=== PATIENT | male | born 1955 | race Caucasian/White ===

== ENCOUNTER → 2017-04-07 | Outpatient (CLI) | payer BC | END | disposition home or self-care (01) | LOC: RADECHMAIN 11:45 | PROVIDERS: ATTEND Internal Medicine | DX: I47.1 Supraventricular tachycardia (principal); I49.1 Atrial premature depolarization; I49.3 Ventricular premature depolarization; I27.0 Primary pulmonary hypertension; R00.8 Other abnormalities of heart beat | CPT/HCPCS: 93225; 93226 ==

== ENCOUNTER → 2020-09-30 | Outpatient (CLI) | payer MEDICARE ==
--- NOTE | 2020-10-01 07:33 | US ---
EXAMINATION TYPE: US prostate transrectal DATE OF EXAM: 09/30/2020 COMPARISON: NONE CLINICAL HISTORY: R97.2 Elevated PSA. PSA drawn 09/08/20; patient stated up to bathroom once /night. This examination was performed using the transrectal probe. EXAM MEASUREMENTS: Gland Size: 5.3 x 4.8 x 3.4cm Volume: 46.0ml Predicted PSA: 5.52ng/ml Actual PSA (if available):6.5ng/ml Vascular area is seen at border of Right Central Gland and Peripheral Zone. Initial images several vesicles are within normal limits. Prostate gland measuring enlarged in size w ith central calcifications. Some focal vascularity could reflect a product of a prostatitis, correlat e clinically. IMPRESSION: Enlarged prostate gland is confirmed. No suspicious hypoechoic nodules. Focal vascularit y right aspect could be product of a focal prostatitis, correlate clinically. Predicted PSA = volume x 0.12 ng/ml Calculated Volume = 0.5236 x L x W x H
== END | disposition home or self-care (01) ==
LOC: RADUSWWP 08:18
PROVIDERS: ATTEND Internal Medicine
DX: N40.0 Benign prostatic hyperplasia without lower urinary tract symptoms (principal)
CPT/HCPCS: 76872

== ENCOUNTER 2024-02-03 09:04 | Observation (INO) | payer MEDICARE ==
[2024-02-03 09:14] LABS: Glucose,Whole Blood 571 mg/dL (70-110)
[2024-02-03] MEDS: SODIUM CHLORIDE 0.9% 1,000 ML IV STA (09:24)
[2024-02-03] MEDS: SODIUM CHLORIDE 0.9% 500 ML 500 ML IV STA (09:25)
[2024-02-03 09:38] LABS: Basophils # (A) 0.1 k/uL (0-0.2); Basophils % (A) 1 %; Eosinophils # (A) 0.3 k/uL (0-0.7); Eosinophils % (A) 5 %; HCT 48.1 % (39.0-53.0); Lymphocytes % (A) 30 %; MCH 30.5 pg (25.0-35.0); MCHC 33.2 g/dL (31.0-37.0); MCV 91.9 fL (80.0-100.0); Mean Platelet Volume 8.6; Monocytes # (A) 0.4 k/uL (0-1.0); Monocytes % (A) 5 %; Neutrophils # (A) 3.9 k/uL (1.3-7.7); Neutrophils % (A) 57 %; Platelet Count 223 k/uL (150-450); RBC 5.23 m/uL (4.30-5.90); RDW 12.9 % (11.5-15.5); WBC 6.8 k/uL (3.8-10.6)
[2024-02-03 09:41] LABS: VBG PH 7.38 (7.31-7.41)
[2024-02-03 10:00] LABS: ALT 35 U/L (4-49); AST 27 U/L (17-59); African American GFR (CKD) >90 (>60 ml/min/1.73 sqM); Albumin 3.5 g/dL (3.5-5.0); Alkaline Phosphatase 206 U/L (38-126); Anion Gap 4 mmol/L; Blood Urea Nitrogen 19 mg/dL (9-20); Calcium 9.1 mg/dL (8.4-10.2); Carbon Dioxide 28 mmol/L (22-30); Chloride 102 mmol/L (98-107); Lipase 908 U/L (23-300); Non-African American GFR(CKD) 90 (>60 ml/min/1.73 sqM); Potassium 4.8 mmol/L (3.5-5.1); Sodium 134 mmol/L (137-145); Total Bilirubin 0.4 mg/dL (0.2-1.3); Total Protein 6.6 g/dL (6.3-8.2)
[2024-02-03 10:03] LABS: Glucose 619 mg/dL (74-99)
[2024-02-03] MEDS: INSULIN REGULAR 100 UNIT/ML VIAL (IV) IV ONE (10:21)
[2024-02-03 10:41] LABS: Appearance,Urine Clear (Clear); Bilirubin,Urine Negative (Negative); Blood,Urine Negative (Negative); Color,Urine Colorless; Glucose,Urine (UA) 4+ (Negative); Ketones,Urine Negative (Negative); Leukocyte Esterase,Urine Negative (Negative); Nitrite,Urine Negative (Negative); PH, Urine 6.5 (5.0-8.0); Protein,Urine Negative (Negative); Urobilinogen,Urine <2.0 mg/dL (<2.0)
--- NOTE | 2024-02-03 11:23 | ED ---
General Adult HPI - General Chief complaint: Recheck/Abnormal Lab/Rx Stated complaint: Abd labs-sent by PCP Time Seen by Provider: 02/03/24 09:09 Source: patient, RN notes reviewed Mode of arrival: ambulatory Limitations: no limitations - History of Present Illness Initial comments: 68-year-old male presents emergency department with chief complaint of abnormal labs. Patient states he had blood work yesterday which was as ordered by his new PCP. He states he has not had blood work in 3 years he states he was told his glucose was very elevated. He does admit to polyuria polydipsia. Patient denies any significant weight gain or weight loss denies any chest pain shortness of breath no localized abdominal pain no fevers or chills no other complaints. - Related Data Home Medications Medication Instructions Recorded Confirmed Aspirin EC [Ecotrin Low Dose] 81 mg PO DAILY 02/03/24 02/03/24 Tamsulosin [Flomax] 0.4 mg PO DIRECTED 02/03/24 02/03/24 Allergies Allergy/AdvReac Type Severity Reaction Status Date / Time No Known Allergies Allergy Verified 02/03/24 10:41 Review of Systems ROS Statement: Those systems with pertinent positive or pertinent negative responses have been documented in the HPI. ROS Other: All systems not noted in ROS Statement are negative. Past Medical History Past Medical History: No Reported History History of Any Multi-Drug Resistant Organisms: None Reported Past Surgical History: No Surgical Hx Reported Past Psychological History: No Psychological Hx Reported Smoking Status: Never smoker Past Alcohol Use History: None Reported Past Drug Use History: None Reported General Exam Limitations: no limitations General appearance: alert, in no apparent distress Head exam: Present: atraumatic, normocephalic, normal inspection Eye exam: Present: normal appearance, PERRL, EOMI. Absent: scleral icterus, conjunctival injection, periorbital swelling ENT exam: Present: normal exam, normal oropharynx, mucous membranes moist Neck exam: Present: normal inspection, full ROM. Absent: tenderness, meningismus, lymphadenopathy Respiratory exam: Present: normal lung sounds bilaterally. Absent: respiratory distress, wheezes, rales, rhonchi, stridor Cardiovascular Exam: Present: regular rate, normal rhythm, normal heart sounds. Absent: systolic murmur, diastolic murmur, rubs, gallop, clicks GI/Abdominal exam: Present: soft, normal bowel sounds. Absent: distended, tenderness, guarding, rebound, rigid Neurological exam: Present: alert, oriented X3, CN II-XII intact, reflexes normal. Absent: motor sensory deficit Skin exam: Present: warm, dry, intact, normal color. Absent: rash Course Vital Signs 02/03/24 02/03/24 09:05 13:08 Temperature 98.2 F Pulse Rate 87 70 Respiratory 18 18 Rate Blood Pressure 161/93 142/86 O2 Sat by Pulse 95 97 Oximetry Medical Decision Making - Medical Decision Making Was pt. sent in by a medical professional or institution (, KATINA, TILE MACHINE OPERATOR, urgent care, hospital, or assisted...) When possible be specific @ -[PCP Did you speak to anyone other than the patient for history (EMS, parent, family, police, friend...)? What history was obtained from this source @ -No Did you review nursing and triage notes (agree or disagree)? Why? @ -I reviewed and agree with nursing and triage notes Were old charts reviewed (outside hosp., previous admission, EMS record, old EKG, old radiological studies, urgent care reports/EKG's, assisted records)? Report findings @ -No old charts were reviewed Differential Diagnosis (chest pain, altered mental status, abdominal pain women, abdominal pain men, vaginal bleeding, weakness, fever, dyspnea, syncope, headache, dizziness, GI bleed, back pain, seizure, CVA, palpatations, mental health, musculoskeletal)? @ -Diabetes, hyperglycemia, HHS, DKA, EKG interpreted by me (3pts min.). @ -None X-rays interpreted by me (1pt min.). @ -None done CT interpreted by me (1pt min.). @ -CT pelvis showing evidence of mild pancreatitis, multiple lymph nodes, pulmonary nodules and enlarged prostate U/S interpreted by me (1pt. min.). @ -None done What testing was considered but not performed or refused? (CT, X-rays, U/S, labs)? Why? @ -None What meds were considered but not given or refused? Why? @ -None Did you discuss the management of the patient with other professionals (professionals i.e. KATINA Olivares, TILE MACHINE OPERATOR, lab, RT, psych nurse, protective services social worker, life sciences director, teacher, bsa officer, showcase trimmer)? Give summary @ -[facility] for admission for new onset diabetes, hyperglycemia, acute pancreatitis and possible metastatic disease Was smoking cessation discussed for >3mins.? @ -No Was critical care preformed (if so, how long)? @ -No Were there social determinants of health that impacted care today? How? (Homelessness, low income, unemployed, alcoholism, drug addiction, transport ation, low edu. Level, literacy, decrease access to med. care, alf, rehab)? @ -No Was there de-escalation of care discussed even if they declined (Discuss DNR or withdrawal of care, Hospice)? DNR status @ -No What co-morbidities impacted this encounter? (DM, HTN, Smoking, COPD, CAD, Cancer, CVA, ARF, Chemo, Hep., AIDS, mental health diagnosis, sleep apnea, morbid obesity)? @ -None Was patient admitted / discharged? Hospital course, mention meds given and route, prescriptions, significant lab abnormalities, going to OR and other pertinent info. @ -Admitted for further evaluation workup of acute pancreatitis, new onset diabetes for medication control, further evaluation with oncology Undiagnosed new problem with uncertain prognosis? @ -Yes Drug Therapy requiring intensive monitoring for toxicity (Heparin, Nitro, Insulin, Cardizem)? @ -No Were any procedures done? @ -No Diagnosis/symptom? @ -New onset diabetes, acute pancreatitis, pulmonary nodules, enlarged prostate Acute, or Chronic, or Acute on Chronic? @ -Acute Uncomplicated (without systemic symptoms) or Complicated (systemic symptoms)? @ -Complicated Side effects of treatment? @ -No Exacerbation, Progression, or Severe Exacerbation? @ -No Poses a threat to life or bodily function? How? (Chest pain, [place], [place], pneumonia, PE, COPD, DKA, ARF, appy, cholecystitis, CVA, Diverticulitis, Homicidal, Suicidal, threat to staff... and all critical care pts) @ -No - Lab Data Result diagrams: 02/03/24 09:27 02/03/24 09:27 Lab Results 02/03/24 02/03/24 02/03/24 Range/Units 09:12 09: 09:27 WBC 6.8 (3.8-10.6) k/uL RBC 5.23 (4.30-5.90) m/uL Hgb 16.0 (13.0-17.5) gm/dL Hct 48.1 (39.0-53.0) % MCV 91.9 (80.0-100.0) fL MCH 30.5 (25.0-35.0) pg MCHC 33.2 (31.0-37.0) g/dL RDW 12.9 (11.5-15.5) % Plt Count 223 (150-450) k/uL MPV 8.6 Neutrophils % 57 % Lymphocytes % 30 % Monocytes % 5 % Eosinophils % 5 % Basophils % 1 % Neutrophils # 3.9 (1.3-7.7) k/uL Lymphocytes # 2.0 (1.0-4.8) k/uL Monocytes # 0.4 (0-1.0) k/uL Eosinophils # 0.3 (0-0.7) k/uL Basophils # 0.1 (0-0.2) k/uL VBG pH (7.31-7.41) VBG pCO2 (37-51) mmHg VBG HCO3 (24-28) mmol/L Sodium 134 L (137-145) mmol/L Potassium 4.8 (3.5-5.1) mmol/L Chloride 102 (98-107) mmol/L Carbon Dioxide 28 (22-30) mmol/L Anion Gap 4 mmol/L BUN 19 (9-20) mg/dL Creatinine 0.83 (0.66-1.25) mg/dL Est GFR (CKD-EPI)AfAm >90 (>60 ml/min/1.73 sqM) Est GFR (CKD-EPI)NonAf 90 (>60 ml/min/1.73 sqM) Glucose 619 H* (74-99) mg/dL POC Glucose (mg/dL) 571 H (70-110) mg/dL POC Glu Enrollment Management Director ID [place] Plasma Lactic Acid Juma (0.7-2.0) mmol/L Calcium 9.1 (8.4-10.2) mg/dL Total Bilirubin 0.4 (0.2-1.3) mg/dL AST 27 (17-59) U/L ALT 35 (4-49) U/L Alkaline Phosphatase 206 H (38-126) U/L Total Protein 6.6 (6.3-8.2) g/dL Albumin 3.5 (3.5-5.0) g/dL Lipase 908 H (23-300) U/L Acetone, Qual Negative (Negative) 02/03/24 02/03/24 Range/Units 09:27 09:27 WBC (3.8-10.6) k/uL RBC (4.30-5.90) m/uL Hgb (13.0-17.5) gm/dL Hct (39.0-53.0) % MCV (80.0-100.0) fL MCH (25.0-35.0) pg MCHC (31.0-37.0) g/dL RDW (11.5-15.5) % Plt Count (150-450) k/uL MPV Neutrophils % % Lymphocytes % % Monocytes % % Eosinophils % % Basophils % % Neutrophils # (1.3-7.7) k/uL Lymphocytes # (1.0-4.8) k/uL Monocytes # (0-1.0) k/uL Eosinophils # (0-0.7) k/uL Basophils # (0-0.2) k/uL VBG pH 7.38 (7.31-7.41) VBG pCO2 46 (37-51) mmHg VBG HCO3 27 (24-28) mmol/L Sodium (137-145) mmol/L Potassium (3.5-5.1) mmol/L Chloride (98-107) mmol/L Carbon Dioxide (22-30) mmol/L Anion Gap mmol/L BUN (9-20) mg/dL Creatinine (0.66-1.25) mg/dL Est GFR (CKD-EPI)AfAm (>60 ml/min/1.73 sqM) Est GFR (CKD-EPI)NonAf (>60 ml/min/1.73 sqM) Glucose (74-99) mg/dL POC Glucose (mg/dL) (70-110) mg/dL POC Glu Enrollment Management Director ID Plasma Lactic Acid Juma 1.5 (0.7-2.0) mmol/L Calcium (8.4-10.2) mg/dL Total Bilirubin (0.2-1.3) mg/dL AST (17-59) U/L ALT (4-49) U/L Alkaline Phosphatase (38-126) U/L Total Protein (6.3-8.2) g/dL Albumin (3.5-5.0) g/dL Lipase (23-300) U/L Acetone, Qual (Negative) Disposition Clinical Impression: New onset type 2 diabetes mellitus, Hyperglycemia, Acute pancreatitis, Pulmonary nodules, Lymphadenopathy Disposition: ADMITTED IP TO THIS HOSP Condition: Fair Time of Disposition: 12:08
--- NOTE | 2024-02-03 11:26 | CT ---
EXAMINATION TYPE: CT abdomen pelvis w con DATE OF EXAM: 02/03/2024 COMPARISON: None HISTORY: New onset pancreatitis CT DLP: 1094.4 mGycm CONTRAST: CT scan of the abdomen and pelvis is performed without Oral Contrast and with IV Contrast, patient in jected with 100ml mL of Isovue 300. FINDINGS: LUNG BASES-: Multiple pulmonary nodules seen at the imaged lung bases totally approximately 20 on the right measuring up to 1.8 cm. Left lung demonstrates up to 15 nodules the largest measuring 7 mm. LIVER/GB: No calcified gallstones. No space occupying hepatic lesion. Biliary tree is of normal ca liber. PANCREAS: Mild pancreatic edema. Pancreatic stranding suggested compatible with pancreatitis. There i s no evidence for pseudocyst or abscess. SPLEEN: No splenic enlargement. No lesion seen. ADRENALS: No nodule. No thickening. KIDNEYS/BLADDER: No hydronephrosis. No nephrolithiasis. No distinct renal mass. Urinary bladder g rossly unremarkable. BOWEL: Normal appendix. Normal bowel caliber. No inflammation. GENITAL ORGANS: Prostate gland enlargement. LYMPH NODES: Nonspecific right external iliac chain adenopathy measuring 2 cm. AORTA: No significant abnormality. OSSEOUS STRUCTURES: Multilevel degenerative disc disease and dish. OTHER: No significant additional abnormality is seen. IMPRESSION: 1. Changes of mild uncomplicated pancreatitis. 2. Multiple noncalcified basilar pulmonary nodules. Metastatic disease is not excluded. 3. Prostate gland enlargement. Correlate with PSA. Nonspecific right external iliac chain adenopathy.
[2024-02-03 11:43] LABS: Glucose,Whole Blood 220 mg/dL (70-110)
[2024-02-03] MEDS ORDERED: ACETAMINOPHEN TAB 325 MG TAB PO PRN (12:08)
[2024-02-03] MEDS ORDERED: ONDANSETRON 4 MG/2 ML VIAL IVP PRN (12:08)
[2024-02-03] MEDS ORDERED: NALOXONE 0.4 MG/ML 1 ML VIAL IV PRN (12:08)
[2024-02-03] MEDS: SODIUM CHLORIDE 0.9% 1,000 ML IV SCH (13:04)
[2024-02-03 13:15] LABS: Glucose,Whole Blood 193 mg/dL (70-110)
[2024-02-03] MEDS ORDERED: DEXTROSE 50% SYRINGE 50 ML IVP PRN ×2 (14:29)
[2024-02-03 15:35] LABS: Glucose,Whole Blood 344 mg/dL (70-110)
--- NOTE | 2024-02-03 15:48 | P.PN ---
Subjective Progress Note Date: 02/03/24 Patient is a 68-year-old male who was sent in by PCP for abnormal labs. Patient states that he has not had blood work done in over 3 years. He went to go see his PCP yesterday and had blood work done in his office. He was told that he had elevated blood glucose and was told to go to the ED. Patient also admits to polyuria and polydipsia. Patient is denying any abdominal pain. He denies any history of alcohol abuse. In the ED patient was found to have a blood glucose of 619. His bicarb was 28 and acetone was negative so DKA ruled out. Patient also found to have a lipase level of 908. CT abdomen pelvis showed findings of uncomplicated pancreatitis. There are also accidental findings of pulmonary nodules and enlarged prostate and lymphadenopathy. Patient admitted to the medicine service. Review of systems: 10 ROS reviewed and are negative except as noted in HPI Physical exam General: [Alert and oriented, well nourished, no acute distress]. Eye: [PERRL, EOMI, normal conjunctiva]. HENT: [Normocephalic, clear tympanic membranes, normal hearing, moist oral mucosa, no scleral icterus, no sinus tenderness]. Neck: [Supple, non-tender, no carotid bruits, no JVD, no lymphadenopathy]. Lungs: [Clear to auscultation and percussion, non-labored respiration]. Heart: [Normal rate, regular rhythm, no murmur, gallop or edema]. Abdomen: [Soft, non-tender, non-distended, normal bowel sounds, no masses]. Musculoskeletal: [Normal range of motion and strength, no tenderness or swelling]. Skin: [Skin is warm, dry and pink, no rashes or lesions]. Neurologic: [Awake, alert, and oriented X3, CN II-XII intact]. Psychiatric: [Cooperative, appropriate mood and affect]. Assessment and plan Newly diagnosed diabetes mellitus with hyperglycemia Bicarb and acetone within normal limits with DKA ruled out. Patient started on sliding scale insulin and Levemir 25 units at bedtime Patient will need education on administering insulin as well as diabetic diet Acute pancreatitis with unclear etiology Patient denies any abdominal pain however meets criteria with elevated lipase and positive CT findings Patient denies any history of alcohol abuse CT scan negative for biliary duct obstruction and bilirubin within normal limits so gallstone pancreatitis ruled out Check triglycerides Patient will need outpatient follow-up with gastroenterology Continue with aggressive fluids Trend lipase Pulmonary nodules I discussed with the patient that he will need to follow-up with his PCP Abdominal lymphadenopathy I discussed with the patient that he will need to follow-up with his PCP BPH Continue with tamsulosin DVT prophylaxis: Lovenox Labs are unremarkable so no need to trend Objective - Vital Signs Vital signs: Vital Signs Temp 98.2 F 02/03/24 09:05 Pulse 70 02/03/24 13:08 Resp 18 02/03/24 13:08 BP 142/86 02/03/24 13:08 Pulse Ox 97 02/03/24 13:08 FiO2 Intake & Output 02/02/24 02/03/24 02/03/24 18:59 06:59 18:59 Weight 83.915 kg - Labs CBC & Chem 7: 02/03/24 09:27 02/03/24 09:27 Labs: Abnormal Lab Results - Last 24 Hours (Table) 02/03/24 02/03/24 02/03/24 Range/Units 09:12 09:27 10:23 Sodium 134 L (137-145) mmol/L Glucose 619 H* (74-99) mg/dL POC Glucose (mg/dL) 571 H (70-110) mg/dL Alkaline Phosphatase 206 H (38-126) U/L Lipase 908 H (23-300) U/L Urine Glucose (UA) 4+ H (Negative) 02/03/24 02/03/24 02/03/24 Range/Units 11:41 13:04 15:31 Sodium (137-145) mmol/L Glucose (74-99) mg/dL POC Glucose (mg/dL) 220 H 193 H 344 H (70-110) mg/dL Alkaline Phosphatase (38-126) U/L Lipase (23-300) U/L Urine Glucose (UA) (Negative)
--- NOTE | 2024-02-03 16:27 | P.HPIM ---
History of Present Illness H&P Date: 02/03/24 Chief Complaint: sent in by PCP for abnormal labs Patient is a 68-year-old male who was sent in by PCP for abnormal labs. Patient states that he has not had blood work done in over 3 years. He went to go see his PCP yesterday and had blood work done in his office. He was told that he had elevated blood glucose and was told to go to the ED. Patient also admits to polyuria and polydipsia. Patient is denying any abdominal pain. He denies any history of alcohol abuse. In the ED patient was found to have a blood glucose of 619. His bicarb was 28 and acetone was negative so DKA ruled out. Patient also found to have a lipase level of 908. CT abdomen pelvis showed findings of uncomplicated pancreatitis. There are also accidental findings of pulmonary nodules and enlarged prostate and lymphadenopathy. Patient admitted to the medicine service. Review of systems: 10 ROS reviewed and are negative except as noted in HPI Physical exam General: [Alert and oriented, well nourished, no acute distress]. Eye: [PERRL, EOMI, normal conjunctiva]. HENT: [Normocephalic, clear tympanic membranes, normal hearing, moist oral mucosa, no scleral icterus, no sinus tenderness]. Neck: [Supple, non-tender, no carotid bruits, no JVD, no lymphadenopathy]. Lungs: [Clear to auscultation and percussion, non-labored respiration]. Heart: [Normal rate, regular rhythm, no murmur, gallop or edema]. Abdomen: [Soft, non-tender, non-distended, normal bowel sounds, no masses]. Musculoskeletal: [Normal range of motion and strength, no tenderness or swelling]. Skin: [Skin is warm, dry and pink, no rashes or lesions]. Neurologic: [Awake, alert, and oriented X3, CN II-XII intact]. Psychiatric: [Cooperative, appropriate mood and affect]. Assessment and plan Newly diagnosed diabetes mellitus with hyperglycemia Bicarb and acetone within normal limits with DKA ruled out. Patient started on sliding scale insulin and Levemir 25 units at bedtime Patient will need education on administering insulin as well as diabetic diet Acute pancreatitis with unclear etiology Patient denies any abdominal pain however meets criteria with elevated lipase and positive CT findings Patient denies any history of alcohol abuse CT scan negative for biliary duct obstruction and bilirubin within normal limits so gallstone pancreatitis ruled out Check triglycerides Patient will need outpatient follow-up with gastroenterology Continue with aggressive fluids Trend lipase Pulmonary nodules I discussed with the patient that he will need to follow-up with his PCP Abdominal lymphadenopathy I discussed with the patient that he will need to follow-up with his PCP BPH Continue with tamsulosin DVT prophylaxis: Lovenox Labs are unremarkable so no need to trend Past Medical History Past Medical History: No Reported History History of Any Multi-Drug Resistant Organisms: None Reported Past Surgical History: No Surgical Hx Reported Past Psychological History: No Psychological Hx Reported Smoking Status: Never smoker Past Alcohol Use History: None Reported Past Drug Use History: None Reported Medications and Allergies Home Medications Medication Instructions Recorded Confirmed Type Aspirin EC [Ecotrin Low Dose] 81 mg PO DAILY 02/03/24 02/03/24 History Tamsulosin [Flomax] 0.4 mg PO DIRECTED 02/03/24 02/03/24 History Allergies Allergy/AdvReac Type Severity Reaction Status Date / Time No Known Allergies Allergy Verified 02/03/24 10:41 Physical Exam Osteopathic Statement: *. No significant issues noted on an osteopathic structural exam other than those noted in the History and Physical/Consult. Vitals: Vital Signs Temp Pulse Resp BP Pulse Ox 02/03/24 13:08 70 18 142/86 97 02/03/24 09:05 98.2 F 87 18 161/93 95 Intake and Output 02/03/24 02/03/24 02/03/24 06:59 14:59 22:59 Other: Weight 83.915 kg Results CBC & Chem 7: 02/03/24 09:27 02/03/24 09:27 Labs: Abnormal Lab Results - Last 24 Hours (Table) 02/03/24 02/03/24 02/03/24 Range/Units 09:12 09:27 10:23 Sodium 134 L (137-145) mmol/L Glucose 619 H* (74-99) mg/dL POC Glucose (mg/dL) 571 H (70-110) mg/dL Alkaline Phosphatase 206 H (38-126) U/L Lipase 908 H (23-300) U/L Urine Glucose (UA) 4+ H (Negative) 02/03/24 02/03/24 02/03/24 Range/Units 11:41 13:04 15:31 Sodium (137-145) mmol/L Glucose (74-99) mg/dL POC Glucose (mg/dL) 220 H 193 H 344 H (70-110) mg/dL Alkaline Phosphatase (38-126) U/L Lipase (23-300) U/L Urine Glucose (UA) (Negative)
[2024-02-03 17:47] LABS: Glucose,Whole Blood 298 mg/dL (70-110)
[2024-02-03] MEDS: INSULIN ASPART (NovoLOG) 100 UNIT/ML VIAL SQ SCH (18:03)
[2024-02-03 20:45] LABS: Glucose,Whole Blood 264 mg/dL (70-110)
[2024-02-03 21:16] LABS: Chol/HDL Ratio 5.28 Ratio; LDL Cholesterol,Calculated 172.1 mg/dL (0.0-131.0)
[2024-02-03 21:37] VITALS: RESP 16
[2024-02-03] MEDS: INSULIN DETEMIR (LEVEMIR) 100 UNIT/ML SYR SQ SCH (22:03)
[2024-02-04 07:37] LABS: Glucose,Whole Blood 145 mg/dL (70-110)
[2024-02-04 08:44] VITALS: BP 139/92; PULSE 89; TEMP 97
[2024-02-04] MEDS: ENOXAPARIN 40 MG/0.4 ML SYRINGE SQ SCH (09:14)
[2024-02-04] MEDS: TAMSULOSIN 0.4 MG CAP.ER.24H PO SCH (09:14)
[2024-02-04] MEDS: ASPIRIN 81 MG PO SCH (09:14)
[2024-02-04 09:42] LABS: Basophils # (A) 0.07 X 10*3/uL (0.00-0.10); Basophils % (A) 0.9 %; Eosinophils # (A) 0.44 X 10*3/uL (0.04-0.35); Eosinophils % (A) 5.8 %; HCT 42.4 % (39.6-50.0); HGB 14.7 g/dL (13.0-17.0); Lymphocytes # (A) 2.93 X 10*3/uL (0.90-5.00); Lymphocytes % (A) 38.6 %; MCH 30.4 pg (27.0-32.0); MCHC 34.7 g/dL (32.0-37.0); MCV 87.8 FL (80.0-97.0); Mean Platelet Volume 11.9 FL (9.5-12.2); Monocytes # (A) 0.57 X 10*3/uL (0.20-1.00); Monocytes % (A) 7.5 %; NRBC Per 100 WBC 0 X 10*3/uL (0.00-0.01); Neutrophils # (A) 3.57 X 10*3/uL (1.80-7.70); Neutrophils % (A) 46.9 %; Platelet Count 213 X 10*3/uL (140-440); RBC 4.83 X 10*6/uL (4.40-5.60); RDW 12.6 % (11.5-14.5)
[2024-02-04 10:04] LABS: Lipase 219 U/L (14-60)
[2024-02-04 10:17] LABS: ALT 25 U/L (10-49); AST 17 U/L (14-35); Albumin 3.4 g/dL (3.8-4.9); Albumin/Globulin Ratio 1.42 Ratio (1.60-3.17); Alkaline Phosphatase 69 U/L (41-126); BUN/Creat Ratio 27.14 Ratio (12.00-20.00); Calcium 8.7 mg/dL (8.7-10.3); Carbon Dioxide 25.1 mmol/L (21.6-31.8); Chloride 105 mmol/L (96-109); Globulin 2.4 g/dL (1.6-3.3); Glucose 158 mg/dL (70-110); Potassium 3.8 mmol/L (3.5-5.5); Sodium 139 mmol/L (135-145); Total Bilirubin 0.5 mg/dL (0.3-1.2); Total Protein 5.8 g/dL (6.2-8.2)
[2024-02-04 12:04] LABS: Glucose,Whole Blood 381 mg/dL (70-110)
--- NOTE | 2024-02-04 12:21 | P.DS ---
Providers Date of admission: 02/03/24 10:09 Attending physician: Chandu Johnson MD Consults: 02/03/24 14:41 Consult Physician Routine Consulting Provider: Mirtha Serrato Consult Reason/Comments: Pancreatitis Do you want consulting provider notified?: Yes Primary care physician: Mary [facility] Hospital Course: Discharge diagnosis Newly diagnosed diabetes mellitus with hyperglycemia Acute pancreatitis with unclear etiology Pulmonary nodules Abdominal lymphadenopathy BPH Elevated PSA Hospital course Patient is a 68-year-old male with a past medical history of BPH who was sent to the ED by his PCP for abnormal labs. Patient's outside labs showed hyperglycemia. Patient states that he had not seen a a doctor for more than a year. In the ED patient's blood glucose was in the 600s. His bicarb was within normal limits and acetone also within normal limits so DKA ruled out. Patient also found to have a lipase of 908. CT abdomen pelvis showed uncomplicated pancreatitis and also lymphadenopathy and enlarged prostate and pulmonary nodules. Patient denied any complaints. He also denied any abdominal pain. Patient was admitted to the medicine service. Patient's hemoglobin A1c came back at 14.1. Patient will be discharged on subcu insulin. He will be discharged on Lantus 30 units at bedtime and NovoLog as per sliding scale insulin. Nurse educated the patient how to administer insulin. I did educate the patient on long-acting and short acting insulin. I also educated patient on symptoms of hypoglycemia. manager material arranged for glucometer with supplies. Patient's lipase trended down to the 200s. Patient was found to have a PSA of 18. He was instructed to follow-up with urology. He was also instructed to follow-up with his PCP regarding the pulmonary nodules and the abdominal lymphadenopathy. Patient also instructed to follow-up with gastroenterology regarding workup of his acute pancreatitis. Physical exam General examination - Alert and Oriented 3 in NAD Heart - + S1S2 no murmurs Lungs - Clear to auscultation Abdomen soft NT ND +ve BS Extremities - No edema FILAMENT MAKER - Moving all 4 extremities spontaneously Psych - Calm and cooperative Patient Condition at Discharge: Fair Plan - Discharge Summary Discharge Rx Participant: No New Discharge Prescriptions: New Insulin Aspart (Niacinamide) [Fiasp 100 Unit/ml Flextouch Pen] 2 - 12 units SQ ACHS 30 Days #10 ml Insulin Glargine,Hum.rec.anlog [Lantus Solostar Pen] 30 units SQ DAILY 30 Days #10 ml Continue Aspirin EC [Ecotrin Low Dose] 81 mg PO DAILY Tamsulosin [Flomax] 0.4 mg PO DIRECTED Discharge Medication List Aspirin EC [Ecotrin Low Dose] 81 mg PO DAILY 02/03/24 [History] Tamsulosin [Flomax] 0.4 mg PO DIRECTED 02/03/24 [History] Insulin Aspart (Niacinamide) [Fiasp 100 Unit/ml Flextouch Pen] 2 - 12 units SQ ACHS 30 Days #10 ml 02/04/24 [Rx] Insulin Glargine,Hum.rec.anlog [Lantus Solostar Pen] 30 units SQ DAILY 30 Days #10 ml 02/04/24 [Rx] Follow up Appointment(s)/Referral(s): Mary Churchill III, MD [Primary Care Provider] - 1-2 days (please call to make your own appointment.) Mirtha Serrato MD [STAFF PHYSICIAN] - 1 Week (please call to make your own appointment.) Dewayne Baker MD [STAFF PHYSICIAN] - 1 Week Patient Instructions/Handouts: Type 2 Diabetes in Adults: New Diagnosis (DC), Basic Carbohydrate Counting (DC) Activity/Diet/Wound Care/Special Instructions: *Activity as tolerated *Check your blood sugar before each meal and before bedtime snack. *Keep a record/log of your blood sugars *Consistent carbohydrate diet
[2024-02-04 15:17] VITALS: BMI 29.0
== END 2024-02-04 14:50 | disposition home or self-care (01) ==
LOC: EC 09:04 → 5NMEDONC 10:09
PROVIDERS: ADMIT Family Medicine; ATTEND Family Medicine
DX: E11.65 Type 2 diabetes mellitus with hyperglycemia (principal); K85.90 Acute pancreatitis without necrosis or infection, unspecified; R91.8 Other nonspecific abnormal finding of lung field; R59.0 Localized enlarged lymph nodes; N40.0 Benign prostatic hyperplasia without lower urinary tract symptoms; Z79.82 Long term (current) use of aspirin
CPT/HCPCS: 96360; 96361 ×2; 96372; 99285; 36415; 80061; 80053 ×2; 82803; 82009; 83605; 83690 ×2; 85025 ×2; 81003; 83036; 74177; G0378 ×2; J1650; Q9967

== ENCOUNTER → 2024-02-24 | Outpatient (CLI) | payer MEDICARE ==
[2024-02-25 04:02] LABS: Basophils # (A) 0.07 X 10*3/uL (0.00-0.10); Basophils % (A) 0.9 %; Eosinophils % (A) 3.7 %; HCT 49.2 % (39.6-50.0); HGB 16.1 g/dL (13.0-17.0); Lymphocytes # (A) 2.94 X 10*3/uL (0.90-5.00); Lymphocytes % (A) 36.3 %; MCHC 32.7 g/dL (32.0-37.0); MCV 91.8 FL (80.0-97.0); Mean Platelet Volume 11.4 FL (9.5-12.2); Monocytes # (A) 0.56 X 10*3/uL (0.20-1.00); Monocytes % (A) 6.9 %; NRBC Per 100 WBC 0 X 10*3/uL (0.00-0.01); Platelet Count 246 X 10*3/uL (140-440); RBC 5.36 X 10*6/uL (4.40-5.60); RDW 13.5 % (11.5-14.5); WBC 8.09 X 10*3/uL (4.50-10.00)
[2024-02-25 04:42] LABS: AST 26 U/L (14-35); Albumin 4.2 g/dL (3.8-4.9); Albumin/Globulin Ratio 1.45 Ratio (1.60-3.17); BUN/Creat Ratio 23.56 Ratio (12.00-20.00); Blood Urea Nitrogen 21.2 mg/dL (9.0-27.0); Calcium 9.5 mg/dL (8.7-10.3); Chloride 102 mmol/L (96-109); Globulin 2.9 g/dL (1.6-3.3); Glucose 125 mg/dL (70-110); Lipase 104 U/L (14-60); Potassium 4.5 mmol/L (3.5-5.5); Sodium 139 mmol/L (135-145); Total Bilirubin 0.6 mg/dL (0.3-1.2); Total Protein 7.1 g/dL (6.2-8.2)
[2024-02-25 04:43] LABS: ALT 39 U/L (10-49); Alkaline Phosphatase 77 U/L (41-126)
[2024-02-26 19:00] LABS: Islet Cell IgG Cytopl Autoabs <1:4 (<1:4)
== END | disposition home or self-care (01) ==
LOC: LABWHC1 15:18
PROVIDERS: ATTEND Family Medicine
DX: E11.65 Type 2 diabetes mellitus with hyperglycemia (principal); K85.90 Acute pancreatitis without necrosis or infection, unspecified; R59.0 Localized enlarged lymph nodes; R97.20 Elevated prostate specific antigen [PSA]; R91.8 Other nonspecific abnormal finding of lung field
CPT/HCPCS: 36415; 80053; 83519; 83690; 85025; 86337; 86341

== ENCOUNTER → 2024-03-02 | Outpatient (CLI) | payer MEDICARE ==
[2024-03-02 08:08] LABS: African American GFR (CKD) >90 (>60 ml/min/1.73 sqM); Blood Urea Nitrogen 21 mg/dL (9-20); Non-African American GFR(CKD) >90 (>60 ml/min/1.73 sqM)
--- NOTE | 2024-03-04 19:10 | CT ---
EXAMINATION TYPE: CT ChestAbdPelvis w con CT DLP: 1312.6 mGycm, Automated exposure control for dose reduction was used. DATE OF EXAM: 03/02/2024 9:36 AM COMPARISON: CT abdomen pelvis 02/03/2024 CLINICAL INDICATION:Male, 68 years old with history of R59.0 LOCALIZED ENLARGED LYMPH NODES; PHH, enl arged lymph nodes Technique: Multiple axial images of the chest, abdomen, and pelvis were obtained following the intrav enous administration of 100 mL Isovue-300. Oral contrast was administered. Two-dimensional coronal an d sagittal reconstructions were obtained. Findings: CHEST: LUNGS/ PLEURA: No pleural effusion, pneumothorax, focal consolidation. Multiple pulmonary nodules dem onstrating irregular borders identified scattered throughout the lungs. Examples include left upper l obe 1.8 cm nodule (series 4, image 19). Left lower lobe 1.0 cm nodule (series 4, image 31). Right upp er lobe 1.8 cm pulmonary nodule (series 4, image 21). Posterior right upper lobe 1.6 cm pulmonary nod ule (series 4, image 27). Anterior right middle lobe 2.2 cm pulmonary nodule (series 4, image 36). Me dial right lower lobe 1.6 cm pulmonary nodule (series 4, image 28). And a right lower lobe 1.5 cm pul monary nodule (series 4, image 41). AIRWAY: Patent and unremarkable.. HEART: Size within normal limits. . MEDIASTINUM: No mediastinal or hilar adenopathy. VASCULATURE: No aortic aneurysm. MUSCULOSKELETAL: No acute osseous abnormalities. No aggressive osseous lesion. SOFT TISSUES/LYMPH NODES: No axillary lymphadenopathy. LOWER NECK: No significant findings. ABDOMEN: ABDOMEN LIVER: Unremarkable GALLBLADDER AND BILE DUCTS: Unremarkable. PANCREAS: Decreased peripancreatic fat stranding from prior examination. No surrounding organized flu id collections. SPLEEN: Unremarkable. ADRENAL GLANDS: Unremarkable. KIDNEYS AND URETERS: No evidence of hydronephrosis or renal calculus. The kidneys enhance symmetrical ly. Contrast is demonstrated within both collecting systems. Left renal sinus cysts redemonstrated. PELVIS BLADDER: Unremarkable REPRODUCTIVE: The prostate gland is enlarged measuring 5.3 cm with central punctate calcifications. ABDOMEN & PELVIS STOMACH AND BOWEL: The stomach and duodenum are unremarkable. Enteric contrast reaches the mid small bowel. Possible eccentric focal wall thickening of the rectum measuring up to 11 mm (series 3, and 11 3). Poorly evaluated on prior CT due to underdistention.. No evidence of bowel obstruction. PERITONEUM: No evidence of pneumoperitoneum or free fluid. VASCULATURE: No evidence of aortic aneurysm. MUSCULOSKELETAL: No acute osseous abnormalities. No aggressive osseous lesions. Grade 1 anterolisthes is of L4 on L5 without evidence of pars defects. LYMPH NODES: Few nonenlarged periaortic lymph nodes are demonstrated. Stable enlarged right external iliac chain 1.9 cm short axis lymph node (series 3, image 98). SOFT TISSUE/ABDOMINAL WALL: Tiny fat filled umbilical hernia. IMPRESSION: 1. Multiple irregular scattered pulmonary nodules highly concerning for metastasis. Consider tissue sampling. 2. Enlarged stable right external iliac chain lymph node concerning for possible metastatic disease. 3. Suggested eccentric wall thickening of the rectum. Direct visualization to exclude rectal cancer is recommended. 4. Prostatomegaly. Correlate with PSA values. 5. Improvement in previously demonstrated peripancreatic inflammatory changes from pancreatitis. No surrounding organized fluid collections.
== END | disposition home or self-care (01) ==
LOC: RADCTMAIN 07:29
PROVIDERS: ATTEND Family Medicine
DX: R59.0 Localized enlarged lymph nodes (principal); R91.8 Other nonspecific abnormal finding of lung field; K85.90 Acute pancreatitis without necrosis or infection, unspecified; N40.0 Benign prostatic hyperplasia without lower urinary tract symptoms
CPT/HCPCS: 82565; 84520; 71260; 74177; 36415; Q9967

== ENCOUNTER → 2024-03-06 | Outpatient (CLI) | payer MEDICARE ==
--- NOTE | 2024-03-07 10:31 | US ---
EXAMINATION TYPE: US carotid duplex BILAT DATE OF EXAM: 03/06/2024 COMPARISON: NONE CLINICAL INDICATION: Male, 68 years old with history of Z82.3 FAMILY HISTORY OF STROKE; family Hx str marito TECHNIQUE: Carotid duplex ultrasound examination. Indirect Doppler criteria was utilized. FINDINGS: EXAM MEASUREMENTS: RIGHT: Peak Systolic Velocity (PSV) cm/sec ----- Right CCA: 72.0 ----- Right ICA: 60.3 ----- Right ECA: 56.4 ICA/CCA ratio: 0.8 RIGHT: End Diastole cm/sec ----- Right CCA: 15.0 ----- Right ICA: 12.4 ----- Right ECA: 0.0 LEFT: Peak Systolic Velocity (PSV) cm/sec ----- Left CCA: 78.4 ----- Left ICA: 72.0 ----- Left ECA: 74.5 ICA/CCA ratio: 0.9 LEFT: End Diastole cm/sec ----- Left CCA: 15.0 ----- Left ICA: 28.0 ----- Left ECA: 7.2 VERTEBRALS (direction of flow): Right Vertebral: Antegrade Left Vertebral: Antegrade Rhythm: Normal CONSTRUCTION PERSON NOTES: Intimal thickening with thick watkins noted, no significant stenosis, elevated veloc ities or ratios. IMPRESSION: 1. No significant flow-limiting stenosis based on velocities. Criteria for Assigning % of Stenosis / Diameter reduction (Estimation based on the indirect measurements of the internal carotid artery velocities (ICA PSV). 1. Normal (no stenosis)=ICA PSV < 125 cm/s: ratio < 2.0: ICA EDV<40 cm/s. 2. Less than 50% stenosis=ICA PSV < 125 cm/s: ratio < 2.0: ICA EDV<40 cm/s. 3. 50 to 69% stenosis=ICA PSV of 125 to 230 cm/s: ration 2.0 ? 4.0: ICA EDV 40-100 cm/s. 4. Greater than 70% stenosis to near occlusion= ICA PSV > 230 cm/s: ratio > 4.0: ICA EDV > 100 cm/s. 5. Near occlusion= ICA PSV velocities may be low or undetectable: variable ratio and ICA EDV. 6. Total occlusion=unable to detect flow.
== END | disposition home or self-care (01) ==
LOC: RADUSWWP 15:06
PROVIDERS: ATTEND Family Medicine
DX: Z04.9 Encounter for examination and observation for unspecified reason (principal); Z82.3 Family history of stroke
CPT/HCPCS: 93880

== ENCOUNTER 2024-03-20 10:02 | Day surgery (SDC) | payer MEDICARE ==
[2024-03-16 08:31] VITALS: BMI 29.0
[2024-03-20] MEDS: IV FLUID CONTINUATION 1,000 ML IV ONE (10:36)
[2024-03-20 10:44] VITALS: TEMP 97.8
[2024-03-20 10:56] LABS: Glucose,Whole Blood 103 mg/dL (70-110)
[2024-03-20] MEDS: LACTATED RINGERS 1,000 ML IV SCH (10:59)
[2024-03-20] MEDS ORDERED: PROPOFOL 10 MG/ML 20 ML VIAL IV ONE (11:05)
--- NOTE | 2024-03-20 11:08 | P.GSHP ---
History of Present Illness H&P Date: 03/20/24 Chief Complaint: Abnormal CAT scan of colon 68-year-old male recently underwent CAT scan showing multiple pulmonary nodules and rectal wall thickening. No complaints related to his bowel. No family history of colon cancer. He has not had a colonoscopy previously. Past Medical History Past Medical History: Diabetes Mellitus, Hyperlipidemia, Prostate Disorder History of Any Multi-Drug Resistant Organisms: None Reported Past Surgical History: No Surgical Hx Reported Additional Past Surgical History / Comment(s): kidney stone removed Past Anesthesia/Blood Transfusion Reactions: No Reported Reaction Additional Past Anesthesia/Blood Transfusion Reaction / Comment(s): no blood transfusion Smoking Status: Never smoker - Past Family History Father Family Medical History: Cancer Additional Family Medical History / Comment(s): stomach Medications and Allergies Home Medications Medication Instructions Recorded Confirmed Type Aspirin EC [Ecotrin Low Dose] 81 mg PO DAILY 02/03/24 03/20/24 History Tamsulosin [Flomax] 0.4 mg PO HS 02/03/24 03/20/24 History Insulin Aspart (Niacinamide) 2 - 12 units SQ ACHS 30 Days #10 ml 02/04/24 03/20/24 Rx [Fiasp 100 Unit/ml Flextouch Pen] Finasteride [Proscar] 5 mg PO HS 03/16/24 03/20/24 History Insulin Glargine,Hum.rec.anlog 30 units SQ HS 03/16/24 03/20/24 History [Lantus Solostar Pen] Allergies Allergy/AdvReac Type Severity Reaction Status Date / Time No Known Allergies Allergy Verified 03/20/24 10:36 Surgical - Exam Vital Signs Temp Pulse Resp BP Pulse Ox 97.8 F 85 16 136/85 98 03/20/24 10:43 03/20/24 10:43 03/20/24 10:43 03/20/24 10:43 03/20/24 10:43 Physical exam: General: Well-developed, well-nourished HEENT: Normocephalic, sclerae nonicteric Abdomen: Nontender, nondistended Extremities: No edema Neuro: Alert and oriented Assessment and Plan (1) Abnormal CT scan, colon Narrative/Plan: Will proceed with colonoscopy at this time. Current Visit: Yes Status: Acute Code(s): R93.3 - ABNORMAL FINDINGS ON DX IMAGING OF PRT DIGESTIVE TRACT SNOMED Code(s): 551796364
--- NOTE | 2024-03-20 11:30 | P.PCN ---
Date of Procedure: 03/20/24 Procedure(s) Performed: PREOPERATIVE DIAGNOSIS: Abnormal CAT scan of colon POSTOPERATIVE DIAGNOSIS: Mild colitis, sigmoid colon polyp PROCEDURE: Colonoscopy with snare polypectomy and biopsy ANESTHESIA: MAC SURGEON: Pradeep Madden M.D. SPECIMENS: Colitis, polyp ENDOSCOPIC PROCEDURE: The patient was placed on the endoscopy table in the left decubitus position. The Olympus colonoscope was inserted into the anus and passed under direct visualization to the base of the cecum. The appendiceal orifice was visualized. From that point the scope was slowly withdrawn inspecting all surfaces carefully. There were no neoplastic inflammatory or polypoid lesions throughout the cecum, ascending, transverse, or descending colon. In the sigmoid a small polyp was seen and removed using a snare with cautery technique. Throughout the rectosigmoid there was mild inflammation and biopsies were taken labeled colitis. Small hemorrhoids at the anus were noted. Digital rectal examinations were normal. No diverticulosis seen. The patient was taken to the recovery room in stable condition per anesthesia guidelines. RECOMMENDATIONS: Await biopsy results. Continue workup of the patient's recently noted pulmonary nodules.
[2024-03-20 11:49] VITALS: BP 113/70; PULSE 76; RESP 16
== END 2024-03-20 12:15 | disposition home or self-care (01) ==
LOC: ORWHC2ENDO 10:02
PROVIDERS: ATTEND Surgery
DX: K63.5 Polyp of colon (principal); K62.1 Rectal polyp; K52.9 Noninfective gastroenteritis and colitis, unspecified; K64.9 Unspecified hemorrhoids; E11.9 Type 2 diabetes mellitus without complications; E78.5 Hyperlipidemia, unspecified; N40.0 Benign prostatic hyperplasia without lower urinary tract symptoms; Z79.82 Long term (current) use of aspirin; Z79.4 Long term (current) use of insulin; Z79.899 Other long term (current) drug therapy
CPT/HCPCS: 88305; 45380; 45385; J2704

== ENCOUNTER → 2024-04-27 | Outpatient (CLI) | payer MEDICARE ==
--- NOTE | 2024-05-25 12:48 | PE ---
Patient: Rodrigo Kearns Ordering Physician: Unknown, Unknown ID: [id number] Phone, Pager: Phone: N/ A Pager: N/A : [phone] Age/Gender: 68Y, M Primary Location: N/A Procedure: PETCT SKULL TO THIGH Study Date: 04/27/2024 12:33:31 PM EXAMINATION TYPE: PET CT fusion skull to thigh DATE OF EXAM: 05/08/2024 CLINICAL INDICATION: Prostate cancer TECHNIQUE: Following the intravenous administration of 3.54 mCi of Ga-68 Illuccix (PSMA), whole bod y images are performed from the skull base to the midthigh. Images are reviewed on the computer in t he coronal, axial, and sagittal planes. Reconstructed rotating images are created on independent wor kstation and reviewed on the computer. A non-contrast CT is performed in conjunction with the PET s can. CT DLP: 742 mGycm, Automated exposure control for dose reduction was used. COMPARISON: CT 03/02/2024, PET/CT None, MRI: None FINDINGS: Mediastinal SUV mean is 1.1. Hepatic parenchyma SUV mean is 8.68. SKULL BASE AND NECK: No suspicious radiotracer activity. CHEST, MEDIASTINUM, AND HILAR REGION: Diffuse pulmonary nodules throughout the lungs compatible with metastatic disease. There are greater than 30 lesions. Examples include: Including right upper lobe 14, right lower lobe medial 16 mm, left upper lobe 11 mm and left lower lo be 10 mm. None of these have increased radiotracer uptake. ABDOMEN AND PELVIS: No suspicious uptake within the prostate gland. Prostate gland is enlarged measur ing up to 5.4 cm in transverse dimension. Prostatomegaly. Moderate amount stool throughout the colon. Arthrosis course of the arterial vasculature. MUSCULOSKELETAL STRUCTURES: Right external iliac lymph node measuring 16 mm short axis. Right common iliac lymph node measuring [address] CT: Atherosclerosis of the carotid bifurcations. Atherosclerosis of the coronary arteries. M oderate amount stool throughout the colon. Prostatomegaly. Opacified left maxillary sinus. IMPRESSION: There are scattered pulmonary nodules, greater than 30, as well as right external iliac a nd right common iliac lymph nodes which are enlarged and suspicious for malignancy however these do n ot demonstrate uptake on this exam with gallium-68 PSMA. Consider PET/CT with FDG radiotracer follow- up exams.
== END | disposition home or self-care (01) ==
LOC: RADPETMAIN 10:15
PROVIDERS: ATTEND Urology
DX: C61 Malignant neoplasm of prostate (principal); R91.8 Other nonspecific abnormal finding of lung field
CPT/HCPCS: 78815; A9552

== ENCOUNTER → 2024-05-17 | Outpatient (CLI) | payer MEDICARE ==
--- NOTE | 2024-05-19 08:32 | PE ---
EXAMINATION TYPE: PET CT fusion skull to thigh DATE OF EXAM: 05/17/2024 COMPARISON: 03/02/2024 chest abdomen pelvis Prior PET/CT: 06/08/2024 HISTORY: Prostate cancer, pulmonary nodules TECHNIQUE: Following the intravenous administration of 8.3 mCi of F-18 FDG, whole body images are pe rformed from the skull base to the midthigh. Images are reviewed on the computer in the coronal, axi al, and sagittal planes. Reconstructed rotating images are created on independent workstation and re viewed on the computer. A localization and attenuation correction CT is performed in conjunction wi th the PET scan. DLP: 535.04 mGycm SCAN: Initial Blood glucose: 116 mg/dL Average Mediastinum SUV: 2.46 Average Liver SUV: 2.76 FINDINGS: NECK: No abnormal uptake THORAX: There are multiple scattered nodules. The majority of nodules have no suspicious uptake. More notable nodules have intermediate signal. One nodule, image 89 and the left lung is elevated SUV at 3.7. Additional notable nodules with intermediate uptake include image 89 right lung, SUV 2.18. Image 92 r ight lung, SUV 2.14. Image 100, right lateral lung with an SUV of 1.57 and in the azygos esophageal r ecess SUV 1.31. Image 114 right anterior lung with an SUV of 2.18. ABDOMEN: There is a soft tissue density within the celiac axis region may be an enlarged node. This a s elevated SUV of 6.38 and is suspicious for metastatic lesion. PELVIS: There is some mild uptake within the posterior lateral right prostate with an SUV of 6.2, flavia ge 7. OSSEOUS STRUCTURES: No suspicious uptake within the osseous structures. LOCALIZATION CT: Coronary artery calcification is noted. Small hiatal hernia is present COMPARISON: Prior study was performed with PSMA. Finding within the abdomen appears to be new. Prosta te uptake appears to be new. Left upper lung nodule with elevated SUV may be new uptake, nodule was p resent previously. IMPRESSION: 1. New soft tissue area of uptake within the celiac axis region suspicious for metastatic lesion. 2. Some increase in uptake within the posterior lateral right lobe prostate. 3. One nodule has some mild uptake, metastatic nodule is not excluded left upper lung field.
== END | disposition home or self-care (01) ==
LOC: RADPETMAIN 06:04
PROVIDERS: ATTEND Urology
DX: C61 Malignant neoplasm of prostate (principal); R91.8 Other nonspecific abnormal finding of lung field
CPT/HCPCS: 78815; A9552

== ENCOUNTER 2024-06-28 12:52 | Day surgery (SDC) | payer MEDICARE ==
[2024-06-28] MEDS: IV FLUID CONTINUATION 1,000 ML IV ONE (13:52)
[2024-06-28] MEDS: LACTATED RINGERS 1,000 ML IV SCH ×2 (13:58→16:09)
--- NOTE | 2024-06-28 14:00 | CT ---
EXAMINATION TYPE: CT chest wo con CT DLP: 546 mGycm, Automated exposure control for dose reduction was used. DATE OF EXAM: 06/28/2024 1:42 PM COMPARISON: PET/CT 05/25/2024, 05/17/2024, CT chest and pelvis 03/02/2024 CLINICAL INDICATION:Male, 69 years old with history of robot bronchoscopy; PHH, Ion Bronch TECHNIQUE: Multiple axial images were obtained through the chest without IV contrast. Lack of IV or o ral contrast limits evaluation of solid and hollow organ viscera. . Coronal and sagittal reformats re viewed. FINDINGS: LUNGS/ PLEURA: No pleural effusion or pneumothorax. Scattered peripheral diffuse reticular opacities and interstitial thickening. Diffuse cylindrical bronchial dilatation. Multiple nodular densities ar e redemonstrated but have decreased in size from prior exams and are more patchy. Examples include a left upper lobe patchy density measuring 8 mm, previously 14 mm (series 4, image 46), posterior left upper lobe 11 mm patchy density, previously 18 mm (series 4, image 80), posterior right upper lobe 11 mm patchy density, previously 18 mm (series 4, image 87). Posterior right midlung 11 mm nodular dens ity, previously 16 mm (series 4, image 120). Medial right lower lobe 8 mm density, previously 16 mm ( series 4, image 129). AIRWAY: Patent and unremarkable.. HEART: Size within normal limits. No pericardial effusion. Small aortic valvular calcifications. Smal l coronary calcifications. MEDIASTINUM: No gross evidence of adenopathy. VASCULATURE: No aortic aneurysm. MUSCULOSKELETAL: No acute osseous abnormalities. DISH of the thoracic spine. Multilevel degenerative disc disease. SOFT TISSUES/LYMPH NODES: Unremarkable. LOWER NECK: No significant findings. UPPER ABDOMEN: Small hiatal hernia. Similar thickening of the left adrenal gland. IMPRESSION: Decrease in size and change of morphology of multiple previously seen pulmonary nodules which now dem onstrate more patchy appearance. Increase in peripheral pulmonary reticulations from prior exam. Find ings are concerning for developing interstitial pulmonary disease with infectious/inflammatory pulmon kendrick nodular densities. Metastasis is not excluded. [facility], , 06/28/2024 1:57 PM
[2024-06-28 14:03] LABS: Glucose,Whole Blood 94 mg/dL (70-110)
[2024-06-28] MEDS ORDERED: WATER FOR INJECTION, STERILE 10 ML VIAL IV ONE (14:32)
[2024-06-28] MEDS ORDERED: ROCURONIUM 10 MG/ML (5 ML VIAL) IV ONE (14:32)
[2024-06-28] MEDS ORDERED: fentaNYL (PF) 50 MCG/ML 2 ML AMP ONE (14:32)
[2024-06-28] MEDS ORDERED: SUCCINYLCHOLINE CHLORIDE 200 MG/10 ML VIAL IV ONE (14:32)
[2024-06-28] MEDS ORDERED: PHENYLEPHRINE-0.9% NACL SYG 1,000 MCG/10 ML SYRINGE ONE (14:32)
[2024-06-28] MEDS ORDERED: PROPOFOL 10 MG/ML 20 ML VIAL IV ONE (14:32)
[2024-06-28] MEDS ORDERED: MIDAZOLAM 2 MG/2 ML VIAL ONE (14:32)
[2024-06-28] MEDS ORDERED: GLYCOPYRROLATE 0.2 MG/ML 2 ML VIAL ONE (14:32)
[2024-06-28] MEDS ORDERED: ePHEDrine 50 MG/ML 1 ML VIAL ONE (14:32)
[2024-06-28] MEDS ORDERED: NEOSTIGMINE 1 MG/ML 10 ML VIAL ONE (14:32)
--- NOTE | 2024-06-28 16:19 | P.PCN ---
Date of Procedure: 06/28/24 Operative Findings: Preoperative Diagnosis: Pulmonary nodules, multiple History of prostate cancer Postoperative Diagnosis: Multiple pulmonary nodules with significant improvement in the number and the size of the various pulmonary nodules on CAT scan of the chest done using the Ion protocol, 06/28/2024 Procedure(s) Performed: Flexible bronchoscopy Robotic-assisted bronchoscopy and addition to radial ultrasound evaluation of the pulmonary nodule Robotic-assisted transbronchial biopsy, brushing endobronchial lavage of endobronchial irregularities in the posterior segment of the right upper lobe. Anesthesia: JINGA Surgeon: Valeriy Marino Estimated Blood Loss (ml): 0 Pathology: other Condition: stable Disposition: same day Operative Findings: A physical exam was performed. Informed consent was obtained from the patient after explaining all the risks (pneumothorax, life threatening bleeding, infection and adverse effects due to medications), benefits and alternatives to the procedure which the patient appeared to understand and so stated. The patient was connected to the monitoring devices. General anesthesia was induced and the patient was intubated by anesthesia. A final timeout was performed and the procedure confirmed by the attending bronchoscopist. The bronchoscope was inserted and the airway examined. Airway examination through the flexible bronchoscope was essentially within normal limits I already targeted and mapped 3 separate pulmonary nodules, 2 of the nodules in the right upper lobe and 1 nodule in the left upper lobe. Robotic bronchoscope was used to navigate the various airways leading to the 3 separate targets. Pulmonary nodules were not visualized on the radial ultrasound inspection. Similarly, there was no visualized nodules on fluoroscopic evaluation. Nevertheless, while navigating to the right lower lobe posterior segment nodule, airway leading to that nodule was quite inflamed and erythematous and there was some endobronchial irregularities. Under direct visualization, endobronchial biopsy of the right upper lobe segment and subsegment was obtained. I also performed endobronchial brushing of the involved segment. At the completion of the procedure, a bronchial lavage of the segment/subsegment of the posterior segment of the right upper lobe was done with a total of 60 cc of saline was infused this was aspirated and the aspirate was bloody. As mentioned, the radial ultrasound segment was not identified. The nodules were not visualized on fluoroscopy. Flex. bronchoscope was inserted and regular suctioning was done. At the completion of the procedure, no residual secretions or bloody material within the airway. The bronchoscope was removed. RECOMMENDATIONS: Await pathology The referring physician will be alerted to the results when available. The patient was advised to follow up with the referring physician with the biopsy results Patient will be called with results.
[2024-06-28 16:34] VITALS: TEMP 97
--- NOTE | 2024-06-28 16:40 | FL ---
EXAMINATION TYPE: FL bronchoscopy DATE OF EXAM: 06/28/2024 FLUOROSCOPY Abnormal lung findings. RT upper lobe provide guided endobronchial biopsy 1.08 mins fluoro. 1 image DAP = [phone] [facility], , 06/28/2024 4:37 PM
--- NOTE | 2024-06-28 17:14 | XR ---
EXAMINATION TYPE: XR chest 1V DATE OF EXAM: 06/28/2024 COMPARISON: 06/21/2024 HISTORY: 69-year-old male post biopsy right endobronchial robotic guided TECHNIQUE: Single frontal view of the chest is obtained. FINDINGS: There is a large right-sided pneumothorax involving approximately 75%. The lungs collapsed down to the right infrahilar region. Slight shift of the heart towards the left. Left lung and pleur al space are clear. IMPRESSION: Large right-sided pneumothorax estimated at 75%. Suspected early tension. Nurse Maldonado (Recovery Room nurse) was notified by jeri Escobar at the time of imaging. [facility], , 06/28/2024 5:11 PM
[2024-06-28] MEDS: LIDOCAINE 1% PF 10 MG/ML (5 ML AMP) SQ ONE (17:56)
[2024-06-28] MEDS: LIDOCAINE 2% (PF) 20 MG/ML 5 ML VIAL SQ ONE (17:59)
--- NOTE | 2024-06-28 18:00 | P.PCN ---
Date of Procedure: 06/28/24 Preoperative Diagnosis: Pneumothorax, likely iatrogenic Postoperative Diagnosis: Same Procedure(s) Performed: Thora vent insertion Anesthesia: local Surgeon: Valeriy Marino Estimated Blood Loss (ml): 0 Pathology: none sent Condition: stable Disposition: same day Operative Findings: Patient developed an iatrogenic pneumothorax following a bronchoscopy in the right lung biopsy. The patient remained hemodynamically stable. The patient's pulse ox was 97% on room air oxygen. No tachycardia. No hypotension. No signs of any tension or hemodynamic instability The procedure was done in the recovery room. A timeout was obtained and the consent was also obtained. The skin over the second and third intercostal space lateral to the sternum was anesthetized using 1% lidocaine. Following that, an incision was made using a scalpel. Subsequently, a 13 [place] Thora vent ca theter was inserted into the right hemithorax without any complications and this was done over the trocar. The trocar was pulled out and a three-way valve was inserted and the right sided pneumothorax was aspirated manually. The appropriate tape send dressing was applied. Subsequent chest x-ray showed full expansion of the right lung with minimal residual pneumothorax on the right. The patient remained asymptomatic and hemodynamically stable throughout the procedure. Denied having any chest pain or shortness of breath. The Thora vent will be kept in place. The patient will be observed for another hour here in the recovery. If he remains stable, the patient will be discharged home to be seen in the office in the morning for another chest x-ray and possible removal of pneumothorax based on his overall progress. No complications post insertion of a Thora vent. The patient is awake and alert with a pulse ox of 97%.
[2024-06-28 18:04] VITALS: RESP 18
--- NOTE | 2024-06-28 18:15 | XR ---
EXAMINATION TYPE: XR chest 1V portable DATE OF EXAM: 06/28/2024 0547 hours Comparison: 0544 hours Clinical History: 69-year-old male follow-up pneumo Findings: Interstitial density. A right-sided thoracic vent catheter is present. Slightly greater degree of exp ansion of the right lung measuring 3.3 cm now versus 4.5 cm, previously. The previous shift has resol stef. Impression: Right-sided Thoravent catheter. The right lung is reexpanding. A moderate pneumothorax remains measur ing 3.3 cm at the apex versus 4.5 cm, previously. [facility], , 06/28/2024 6:13 PM
--- NOTE | 2024-06-28 18:17 | XR ---
EXAMINATION TYPE: XR chest 1V DATE OF EXAM: 06/28/2024 5:44 PM COMPARISON: Earlier today 4:45 PM HISTORY: 69-year-old male post Thoravent catheter, pneumothorax TECHNIQUE: Single frontal view of the chest is obtained. FINDINGS: Heart normal size. Shift is improved. Moderate-sized pneumothorax remains measuring 4.5 cm from the a pex improving. Patchy right basilar opacity. Diffuse interstitial density. IMPRESSION: 1. Right-sided Thoravent catheter in place. Partial reinflation of the right lung now measuring 4.5 c m at the apex. Still moderate to large in size though the previous cardiac shift has resolved. 2. Mild diffuse interstitial densities. Attention on follow-up. [facility], , 06/28/2024 6:15 PM
--- NOTE | 2024-06-28 18:36 | XR ---
EXAMINATION TYPE: XR chest 1V portable DATE OF EXAM: 06/28/2024 5:51 PM Comparison: Earlier today 5:47 PM Clinical History: 69-year-old male follow-up right-sided pneumo Findings: Redemonstrated right-sided permacatheter. There is continued reexpansion of the right lung. Currently measuring 9 mm at the lateral base and 6 mm at the right upper lobe versus 3.3 cm, previously. Mild interstitial prominence shows some improvement from prior. Heart normal size. Impression: 1. Right-sided Thoravent catheter. Ongoing reexpansion of the right lung now small residual pneumotho rax remains measuring 6 mm at the right upper lobe and 9 mm at the base versus 3.3 cm, previously. 2. The mild interstitial density shows some improvement as well. [facility], , 06/28/2024 6:34 PM
[2024-06-28 18:46] VITALS: BP 130/80; PULSE 76
== END 2024-06-28 19:05 | disposition home or self-care (01) ==
LOC: ORWHC2ENDO 12:52
PROVIDERS: ATTEND Internal Medicine Critical Care Medicine
DX: J93.9 Pneumothorax, unspecified (principal); R91.8 Other nonspecific abnormal finding of lung field; E11.9 Type 2 diabetes mellitus without complications; N40.0 Benign prostatic hyperplasia without lower urinary tract symptoms; Z87.442 Personal history of urinary calculi; Z85.46 Personal history of malignant neoplasm of prostate; Z79.899 Other long term (current) drug therapy; Z98.890 Other specified postprocedural states
CPT/HCPCS: 88108; 88305; 87070; 87205; 87116; 87102; 87206; 71045; 71250; 31628; 31629; 31623; 31624; J2250; J0330; J2710; J2003 ×2; J3010; J2704; J2371; J1596; S2900; 87075

== ENCOUNTER → 2024-08-22 | Outpatient (CLI) | payer MEDICARE ==
[2024-08-22 13:03] LABS: African American GFR (CKD) 83 (>60 ml/min/1.73 sqM); Blood Urea Nitrogen 30 mg/dL (9-20); Non-African American GFR(CKD) 72 (>60 ml/min/1.73 sqM)
--- NOTE | 2024-08-24 10:40 | CT ---
EXAMINATION TYPE: CT ChestAbdPelvis w con DATE OF EXAM: 08/22/2024 2:41 PM COMPARISON: 06/28/2024 CT chest, 05/17/2024 PET/CT CLINICAL INDICATION: Male, 69 years old with history of C61 PROSTATE CANCER, f/u prostate ca, lung no dules TECHNIQUE: Axial images at 5 mm thick sections. Reconstructed images in the coronal plane. Delayed images through the kidneys. Contrast used:100 mL of Isovue 300 with IV Contrast, (none if empty) Oral contrast used: without Oral Contrast (none if empty) CT DLP: 817.5 mGycm, Automated exposure control for dose reduction was used. FINDINGS: CT CHEST: Portion of the thyroid visualized is normal. There may be a tiny nodule within the major fissure near the anterior left lung base, series 3 image 45 there is a 0.5 cm nodule peripheral right midlung. Series 3 image 35. There is a 1.1 cm density in the posterior right upper lung field. Image 25. There is a small density of the left apex, image 14 peripheral densities in the posterior left lung, image 15 and may be a sm all density posterior right lung image 17. Nodular densities have significantly diminished from the P ET/CT of 05/17/2024. No enlarged mediastinal or hilar adenopathy is evident. The ascending aorta diameter at the level of the main pulmonary artery is 3.1 cm. The main pulmonary artery diameter at the bifurcation is 2.6 cm. There may be a small hiatal hernia with thickening of the distal esophagus. CT ABDOMEN: Liver: Biliary dilatation is present. There is prominence of the common bile duct estimated at 2.4 cm . Focal obstruction at the pancreatic head is not identified. Caliber of the common bile duct however diminishes to normal size. Spleen: Normal Pancreas: Pancreatic head may be somewhat enlarged from the comparison study may be greater in the un cinate process. No defined obstruction of the common bile duct identified. Consider ERCP. No pancreat ic duct dilatation evident. Adrenal glands: The adrenal glands are normal. Gallbladder: Distended. Kidneys: No masses are evident. Small peripelvic renal cysts are present on the left. No hydronephros is is evident. Delayed images were obtained through the kidneys, which remain unremarkable. Aorta: Vascular calcification is within the aorta. Inferior vena cava: Normal. CT PELVIS: Colon appears distended with fecal debris. Obstruction ovary is not identified. Large fecal boluses o f the rectum. This study is without neural contrast limiting evaluation. Appendix: Not identified. No dilated tubular structure or inflammatory change is evident. Urinary bladder: Diffuse wall thickening within the urinary bladder is present. No focal nodularity i dentified. Consider cystitis. Genitourinary structures: Prostate appears slightly prominent. Some calcification is present. Small d ensities in the posterior lateral right prostate may be calcification or a hyperdense area. Image 118 . Osseous structures: No suspicious lytic or sclerotic lesions. Facet hypertrophy is present in the low er lumbar spine IMPRESSION: 1. Significantly improved nodularity within the lung harley from prior PET/CT. 2. There may be some increasing prominence of the uncinate process. There is dilatation of the common bile duct and some biliary dilatation present and distention of the Gallbladder. This may be the are a of intensity on the prior PET/CT. Additional workup for neoplasm of the pancreas is recommended. Co nsider contrast MRI. [facility], Workstation: [facility], 08/24/2024 10:38 AM
== END | disposition home or self-care (01) ==
LOC: RADCTMAIN 12:01
PROVIDERS: ATTEND Internal Medicine
DX: C61 Malignant neoplasm of prostate (principal); R91.1 Solitary pulmonary nodule; E11.9 Type 2 diabetes mellitus without complications; K82.8 Other specified diseases of gallbladder; K83.8 Other specified diseases of biliary tract
CPT/HCPCS: 82565; 84520; 71260; 74177; 36415; Q9967

== ENCOUNTER 2024-08-28 17:35 | Emergency (ER) | payer MEDICARE ==
--- NOTE | 2024-08-28 18:09 | ED ---
Recheck HPI - General Source: patient, RN notes reviewed Mode of arrival: ambulatory Limitations: no limitations - History of Present Illness MD Complaint: abnormal lab Onset/Timin -: days(s) <Rene Wong - Last Filed: 08/28/24 18:06> <Edwin Mehta - Last Filed: 08/29/24 00:33> - General Chief Complaint: Recheck/Abnormal Lab/Rx Stated Complaint: abn labs Time Seen by Provider: 08/28/24 17:52 - History of Present Illness Initial Comments: Quick note: This is a 69-year-old male presenting with abnormal lab work. Patient endorses yellowing of skin and blood in urine in 7 days. Patient endorses prostate cancer. Patient otherwise denies fever, chills, chest pain, dyspnea, abdominal pain, N/B/D, dizziness, urinary symptoms, change in bowel color/habits. (Rene Wong) Dictation was produced using [employer] dictation software. please excuse any grammatical, word or spelling errors. Chief Complaint: 69-year-old male presents to the emergency department with abnormal CT and abnormal labs History of Present Illness: Patient is a 69-year-old male presents to the emergency department for abnormal CT and abnormal labs. He has history of prostate cancer diagnosed approximately 4 months ago. Follows with oncology. Patient had a CT ordered by oncology for concerns of progressive cancer and abdominal pain. He is found to have a pancreatic mass. Oncologist also noted that patient had new onset jaundice. He had bilirubin levels drawn and they were found to be elevated. Today he had his levels resulted and oncologist told patient to come to the ER. Patient states that denies any significant symptoms. He has not noticed his skin turning yellow. Patient otherwise has no other complaints. The ROS documented in this emergency department record has been reviewed and confirmed by me. Those systems with pertinent positive or negative responses have been documented in the HPI. All other systems are other negative and/or noncontributory. (Edwni Mehta) - Related Data Home Medications Medication Instructions Recorded Confirmed Aspirin EC [Ecotrin Low Dose] 81 mg PO DAILY 02/03/24 06/26/24 Tamsulosin [Flomax] 0.4 mg PO HS 02/03/24 06/28/24 Finasteride [Proscar] 5 mg PO HS 03/16/24 06/28/24 Insulin Glargine,Hum.rec.anlog 30 units SQ HS 03/16/24 06/28/24 [Lantus Solostar Pen] Unk Calcium 1 tab PO DAILY 06/26/24 06/26/24 Previous Rx's Medication Instructions Recorded Insulin Aspart (Niacinamide) 2 - 12 units SQ ACHS 30 Days #10 ml 02/04/24 [Fiasp 100 Unit/ml Flextouch Pen] Allergies Allergy/AdvReac Type Severity Reaction Status Date / Time No Known Allergies Allergy Verified 08/28/24 18:03 Review of Systems ROS Other: All systems not noted in ROS Statement are negative. <Rene Wong - Last Filed: 08/28/24 18:06> ROS Other: All systems not noted in ROS Statement are negative. <Edwin Mehta - Last Filed: 08/29/24 00:33> ROS Statement: Those systems with pertinent positive or pertinent negative responses have been documented in the HPI. Past Medical History Past Medical History: Cancer, Diabetes Mellitus Additional Past Medical History / Comment(s): Prostate cancer -recent. spots on lungs History of Any Multi-Drug Resistant Organisms: None Reported Past Surgical History: No Surgical Hx Reported Additional Past Surgical History / Comment(s): kidney stone removed, colonoscopy Past Anesthesia/Blood Transfusion Reactions: No Reported Reaction Additional Past Anesthesia/Blood Transfusion Reaction / Comment(s): no blood transfusion Past Psychological History: No Psychological Hx Reported Smoking Status: Never smoker - Past Family History Father Family Medical History: Cancer Additional Family Medical History / Comment(s): stomach <Rene Wong - Last Filed: 08/28/24 18:06> General Exam Limitations: no limitations <Rene Wong - Last Filed: 08/28/24 18:06> <Edwin Mehta - Last Filed: 08/29/24 00:33> - General Exam Comments Initial Comments: Visual Physical Exam Vital signs reviewed General: Well-appearing, nontoxic, no acute distress. Head: Normocephalic, atraumatic Eyes: PERRLA, EOMI ENT: Airway patent Chest: Nonlabored breathing Skin: No visual rash, normal skin tone. Skin is jaundiced. Neuro: Alert and oriented 3 Musculoskeletal: No gross abnormalities (Rene Wong) PHYSICAL EXAM: General Impression: Alert and oriented x3, not in acute distress HEENT: Normocephalic atraumatic, extra-ocular movements intact, pupils equal and reactive to light bilaterally, mucous membranes moist. Cardiovascular: Heart regular rate and rhythm Chest: Able to complete full sentences, no retractions, no tachypnea Abdomen: abdomen soft, non-tender, non-distended, no organomegaly Musculoskeletal: Pulses present and equal in all extremities, no peripheral edema Motor: no focal deficits noted Neurological: CN II-XII grossly intact, no focal motor or sensory deficits noted Skin: Significantly jaundiced Psych: Normal affect and mood (Edwin Mehta) Course Vital Signs 08/28/24 08/28/24 08/28/24 17:59 21:37 23:00 Temperature 97.9 F 98.7 F Pulse Rate 72 72 56 L Respiratory 20 18 18 Rate Blood Pressure 129/78 159/89 163/82 O2 Sat by Pulse 98 97 97 Oximetry Medical Decision Making <Rene Wong - Last Filed: 08/28/24 18:06> - Lab Data Result diagrams: 08/28/24 18:20 08/28/24 18:20 <Edwin Mehta - Last Filed: 08/29/24 00:33> - Medical Decision Making I completed the quick note portion of this chart signed MIRYAM Brooks (Rene Wong) Was pt. sent in by a medical professional or institution (KATINA Olivares, [employer], urgent care, hospital, or prison...) When possible be specific @ -No Did you speak to anyone other than the patient for history (EMS, parent, family, police, friend...)? What history was obtained from this source @ -No Did you review nursing and triage notes (agree or disagree)? Why? @ -I reviewed and agree with nursing and triage notes Were old charts reviewed (outside hosp., previous admission, EMS record, old EKG, old radiological studies, urgent care reports/EKG's, prison records)? Report findings @ -Outpatient CT ordered showing pancreatic mass with biliary obstruction Differential Diagnosis (chest pain, altered mental status, abdominal pain women, abdominal pain men, vaginal bleeding, musculoskeletal, weakness, fever, dyspnea, syncope, headache, dizziness, GI bleed, back pain, seizure, CVA, palpatations, mental health)? @ -Differential Abdominal Pain Men: Appendicitis, cholecystitis, diverticulosis, ischemic bowel, pancreatitis, hepatitis, UTI, gastroenteritis, AAA, incarcerated hernia, bowel obstruction, constipation, inflammatory bowel, hepatitis, peptic ulcer disease, splenic infarction, perforated viscus, testicular torsion, this is not meant to be an all-inclusive list EKG interpreted by me (3pts min.). @ -None done X-rays interpreted by me (1pt min.). @ -None done CT interpreted by me (1pt min.). @ -None done U/S interpreted by me (1pt. min.). @ -None done What testing was considered but not performed or refused? (CT, X-rays, U/S, labs)? Why? @ -None What meds were considered but not given or refused? Why? @ -None Was smoking cessation discussed for >3mins.? @ -No Were there social determinants of health that impacted care today? How? (Homelessness, low income, unemployed, alcoholism, drug addiction, transportation, low edu. Level, literacy, decrease access to med. care, detention, rehab)? @ -No Was there de-escalation of care discussed even if they declined (Discuss DNR or withdrawal of care, Hospice)? DNR status @ -No What co-morbidities impacted this encounter? (DM, HTN, Smoking, COPD, CAD, Cancer, CVA, ARF, Chemo, Hep., AIDS, mental health diagnosis, sleep apnea, morbid obesity)? @ -Cancer history Was patient admitted / discharged? Hospital course, mention meds given and rout e, prescriptions, significant lab abnormalities, going to OR and other pertinent info. @ -69-year-old male sent in by oncologist for hyperbilirubinemia with pancreatic head mass. Vital signs stable. Patient jaundiced at the bedside otherwise well-appearing in no acute distress. Laboratory evaluation obtained. Labs are within acceptable limits except for bilirubinemia of 22.[address] outpatient reviewed showing pancreatic head mass. Case discussed with Dr. Perea our GI specialist recommends patient be transferred to [facility] for special GI procedure that she does not performed. Case discussed with Dr. Gallagher at [facility] who is willing to accept patient's care for tra nsfer. [facility] is at capacity and will likely accept patient for transfer tomorrow. Patient will board in the ER until patient is accepted by [facility]. Did you discuss the management of the patient with other professionals (professionals i.e. , PA, [employer], lab, RT, psych nurse, social media sr strategy manager, manager group, teacher, hospital chief financial officer, high risk case manager)? Give summary @ -See above Was critical care preformed (if so, how long)? @ -No Undiagnosed new problem with uncertain prognosis? @ -No Drug Therapy requiring intensive monitoring for toxicity (Heparin, Nitro, Insulin, Cardizem)? @ -No Were any procedures done? @ -No Diagnosis/symptom? Acute, or Chronic, or Acute on Chronic? Uncomplicated (with out systemic symptoms) or Complicated (systemic symptoms)? @ -Pancreatic mass Side effects of treatment? @ -No Exacerbation, Progression, or Severe Exacerbation? @ -No Poses a threat to life or bodily function? How? (Chest pain, USA, PR, pneumonia, PE, COPD, DKA, ARF, appy, cholecystitis, CVA, Diverticulitis, Homicidal, Suicidal, threat to staff... and all critical care pts) @ -yes (Edwin Mehta) - Lab Data Lab Results 08/28/24 08/28/24 08/28/24 Range/Units 18:20 18:20 18:20 WBC 7.2 (3.8-10.6) k/uL RBC 3.84 L (4.30-5.90) m/uL Hgb 11.5 L (13.0-17.5) gm/dL Hct 35.0 L (39.0-53.0) % MCV 91.1 (80.0-100.0) fL MCH 29.9 (25.0-35.0) pg MCHC 32.8 (31.0-37.0) g/dL RDW 19.3 H (11.5-15.5) % Plt Count 277 (150-450) k/uL MPV 9.4 Neutrophils % (Manual) 56 % Lymphocytes % (Manual) 30 % Monocytes % (Manual) 14 % Neutrophils # (Manual) 4.03 (1.3-7.7) k/uL Lymphocytes # (Manual) 2.16 (1.0-4.8) k/uL Monocytes # (Manual) 1.01 H (0-1.0) k/uL Nucleated RBCs 0 (0-0) /100 WBC Manual Slide Review Performed Poikilocytosis (manual Present Anisocytosis Slight Anisocytosis (manual) Present Target Cells Present PT 13.3 H (10.0-12.5) sec INR 1.2 H (<1.2) APTT 27.9 (22.0-30.0) sec Sodium 135 L (137-145) mmol/L Potassium 3.8 (3.5-5.1) mmol/L Chloride 99 (98-107) mmol/L Carbon Dioxide 27 (22-30) mmol/L Anion Gap 9 mmol/L BUN 23 H (9-20) mg/dL Creatinine 1.04 (0.66-1.25) mg/dL Est GFR (CKD-EPI)AfAm 84 (>60 ml/min/1.73 sqM) Est GFR (CKD-EPI)NonAf 73 (>60 ml/min/1.73 sqM) Glucose 125 H (74-99) mg/dL Plasma Lactic Acid Juma (0.7-2.0) mmol/L Calcium 9.2 (8.4-10.2) mg/dL Total Bilirubin 22.1 H* (0.2-1.3) mg/dL AST 393 H (17-59) U/L ALT 484 H (4-49) U/L Alkaline Phosphatase 1175 H (38-126) U/L Total Protein 7.3 (6.3-8.2) g/dL Albumin 3.9 (3.5-5.0) g/dL 08/28/24 Range/Units 18:20 WBC (3.8-10.6) k/uL RBC (4.30-5.90) m/uL Hgb (13.0-17.5) gm/dL Hct (39.0-53.0) % MCV (80.0-100.0) fL MCH (25.0-35.0) pg MCHC (31.0-37.0) g/dL RDW (11.5-15.5) % Plt Count (150-450) k/uL MPV Neutrophils % (Manual) % Lymphocytes % (Manual) % Monocytes % (Manual) % Neutrophils # (Manual) (1.3-7.7) k/uL Lymphocytes # (Manual) (1.0-4.8) k/uL Monocytes # (Manual) (0-1.0) k/uL Nucleated RBCs (0-0) /100 WBC Manual Slide Review Poikilocytosis (manual Anisocytosis Anisocytosis (manual) Target Cells PT (10.0-12.5) sec INR (<1.2) APTT (22.0-30.0) sec Sodium (137-145) mmol/L Potassium (3.5-5.1) mmol/L Chloride (98-107) mmol/L Carbon Dioxide (22-30) mmol/L Anion Gap mmol/L BUN (9-20) mg/dL Creatinine (0.66-1.25) mg/dL Est GFR (CKD-EPI)AfAm (>60 ml/min/1.73 sqM) Est GFR (CKD-EPI)NonAf (>60 ml/min/1.73 sqM) Glucose (74-99) mg/dL Plasma Lactic Acid Juma 2.0 (0.7-2.0) mmol/L Calcium (8.4-10.2) mg/dL Total Bilirubin (0.2-1.3) mg/dL AST (17-59) U/L ALT (4-49) U/L Alkaline Phosphatase (38-126) U/L Total Protein (6.3-8.2) g/dL Albumin (3.5-5.0) g/dL Disposition <Rene Wong - Last Filed: 08/28/24 18:06> Time of Disposition: 22:35 - Out of Hospital Transfer - Req. Specs Out of Hospital Transfer - Requested Specifics: Other Emergency Center ([facility]) <Edwin Mehta - Last Filed: 08/29/24 00:33> Clinical Impression: Pancreatic mass Disposition: OTHER INSTITUTION NOT DEFINED Condition: Fair Referrals: Ananda mAbrose MD [Primary Care Provider] - 1-2 days
[2024-08-28 18:41] LABS: ALT 484 U/L (4-49); AST 393 U/L (17-59); African American GFR (CKD) 84 (>60 ml/min/1.73 sqM); Albumin 3.9 g/dL (3.5-5.0); Anion Gap 9 mmol/L; Blood Urea Nitrogen 23 mg/dL (9-20); Calcium 9.2 mg/dL (8.4-10.2); Carbon Dioxide 27 mmol/L (22-30); Chloride 99 mmol/L (98-107); Glucose 125 mg/dL (74-99); Non-African American GFR(CKD) 73 (>60 ml/min/1.73 sqM); Potassium 3.8 mmol/L (3.5-5.1); Sodium 135 mmol/L (137-145); Total Protein 7.3 g/dL (6.3-8.2)
[2024-08-28 18:43] LABS: Anisocytosis Slight; HGB 11.5 gm/dL (13.0-17.5); MCH 29.9 pg (25.0-35.0); MCHC 32.8 g/dL (31.0-37.0); MCV 91.1 fL (80.0-100.0); Mean Platelet Volume 9.4; Platelet Count 277 k/uL (150-450); RBC 3.84 m/uL (4.30-5.90); RDW 19.3 % (11.5-15.5); WBC 7.2 k/uL (3.8-10.6)
[2024-08-28 18:45] LABS: Total Bilirubin 22.1 mg/dL (0.2-1.3)
[2024-08-28 18:51] LABS: Alkaline Phosphatase 1175 U/L (38-126)
[2024-08-28 19:01] LABS: INR 1.2 (<1.2); Partial Thromboplastin Time 27.9 sec (22.0-30.0); Prothrombin Time 13.3 sec (10.0-12.5)
[2024-08-28 19:07] LABS: Lymphocytes # (M) 2.16 k/uL (1.0-4.8); Monocytes # (M) 1.01 k/uL (0-1.0); Neutrophils # (M) 4.03 k/uL (1.3-7.7); Neutrophils % (M) 56 %; Nucleated Red Blood Cells 0 /100 WBC (0-0); Target Cells Present; Total Cells Counted 100
[2024-08-28 19:08] LABS: Anisocytosis (M) Present; Poikilocytosis (M) Present
[2024-08-28] MEDS: SODIUM CHLORIDE 0.9% 1,000 ML IV STA (23:10)
[2024-08-29 04:28] LABS: Amorphous Sediment,Urine Few /hpf; Appearance,Urine Cloudy (Clear); Bilirubin,Urine 4+ (Negative); Blood,Urine Negative (Negative); Color,Urine Dark Brown; Glucose,Urine (UA) 2+ (Negative); Hyaline Casts,Urine 14 /lpf (0-2); Ketones,Urine Negative (Negative); Leukocyte Esterase,Urine Negative (Negative); Mucus,Urine Moderate /hpf; Nitrite,Urine Negative (Negative); PH, Urine 5.5 (5.0-8.0); Protein,Urine 1+ (Negative); RBC,Urine <1 /hpf (0-5); Specific Gravity,Urine 1.017 (1.001-1.035); Squamous Epithelial Cell,Urine <1 /hpf (0-4); Urobilinogen,Urine <2.0 mg/dL (<2.0); WBC,Urine 6 /hpf (0-5)
[2024-08-29] MEDS ORDERED: HYDROmorphone 0.5 MG/0.5 ML SYRINGE IVP PRN (07:57)
[2024-08-29] MEDS: SODIUM CHLORIDE 0.9% 1,000 ML IV SCH (07:58)
[2024-08-29 09:44] LABS: Glucose,Whole Blood 155 mg/dL (70-110)
[2024-08-29 15:32] LABS: Anisocytosis Slight; Basophils # (A) 0.1 k/uL (0-0.2); Basophils % (A) 1 %; Eosinophils # (A) 0.2 k/uL (0-0.7); Eosinophils % (A) 2 %; HCT 32.9 % (39.0-53.0); HGB 11.3 gm/dL (13.0-17.5); Lymphocytes # (A) 2.5 k/uL (1.0-4.8); Lymphocytes % (A) 34 %; MCH 30.8 pg (25.0-35.0); MCHC 34.3 g/dL (31.0-37.0); MCV 89.6 fL (80.0-100.0); Mean Platelet Volume 10.4; Monocytes # (A) 0.4 k/uL (0-1.0); Monocytes % (A) 5 %; Neutrophils # (A) 4.1 k/uL (1.3-7.7); Neutrophils % (A) 56 %; Platelet Count 266 k/uL (150-450); RBC 3.67 m/uL (4.30-5.90); WBC 7.3 k/uL (3.8-10.6)
[2024-08-29 15:34] LABS: ALT 422 U/L (4-49); AST 331 U/L (17-59); African American GFR (CKD) >90 (>60 ml/min/1.73 sqM); Albumin 3.4 g/dL (3.5-5.0); Anion Gap 7 mmol/L; Blood Urea Nitrogen 19 mg/dL (9-20); Calcium 8.8 mg/dL (8.4-10.2); Carbon Dioxide 24 mmol/L (22-30); Chloride 104 mmol/L (98-107); Glucose 130 mg/dL (74-99); Non-African American GFR(CKD) >90 (>60 ml/min/1.73 sqM); Potassium 3.9 mmol/L (3.5-5.1); Sodium 135 mmol/L (137-145)
[2024-08-29 15:49] LABS: Alkaline Phosphatase 1144 U/L (38-126); Total Bilirubin 20.8 mg/dL (0.2-1.3); Total Protein 6.5 g/dL (6.3-8.2)
[2024-08-29 15:56] LABS: Target Cells Present
[2024-08-29 15:58] LABS: Spherocytes Present
[2024-08-29] MEDS: TAMSULOSIN 0.4 MG CAP.ER.24H PO SCH (20:26)
[2024-08-29] MEDS: CALCIUM CARBONATE 500 MG CHEWABLE PO SCH (20:26)
[2024-08-29] MEDS: NON FORMULARY DRUG (Insulin Glargine,Hum.Rec.Anlog [Lantus Solostar Pen] 100 UNIT/ML Insul SQ SCH (20:28)
--- NOTE | 2024-08-30 | P.CONS ---
History of Present Illness - History of Present Illness This is a pleasant 69 years old male. Who has significant history of prostate cancer and he is getting chemotherapy with relugolix , also he has history of lung nodule underwent recent bronchoscopy with washing and biopsy which were negative for malignant cells. About few months ago Dr. Davila referred him to Dr. Lora who started seeing him for the last [address] of the abdomen as an outpatient showing decrease in the size of the lung nodularity but there is prominent of the pancreatic uncinate process with biliary dilatation of the common bile duct and distended gallbladder, findings suspicious for tumor of the pancreas. Saw Dr. Lora office contacted the patient to come to emergency room Patient currently lying in bed looks comfortable not in distress. He looks sad. He answers questions appropriately and he has insight He denies chest pain or dyspnea. No specific GI symptom. While he is in the emergency room his vitals look stable and he is afebrile Labs reviewed also has unremarkable CBC, BMP, INR However bilirubin is elevated significantly at the 20.8 while AST 331 and ALT 422. Hemoglobin stable at 11.3. Urine analysis showing elevated bilirubin at 4+ Lactic acid is within the reference range of 2.0 No in the emergency room. However he had his CAT scan of the abdomen on 08/24 with results as above Patient while he is in ER, 100 for transfer center was contacted and they accepted the patient however there is waiting time about 4 days. Review of Systems Review of systems CONSTITUTIONAL: No fever, no malaise, no fatigue. HEENT: No recent visual problems or hearing problems. Denied any sore throat. CARDIOVASCULAR: No orthopnea, PND, no palpitations, no syncope. PULMONARY: No shortness of breath, no cough, no hemoptysis. GASTROINTESTINAL: No diarrhea, no nausea, no vomiting, no abdominal pain. Normoactive bowel sounds. NEUROLOGICAL: No headaches, no weakness, no numbness. HEMATOLOGICAL: Denies any bleeding or petechiae. GENITOURINARY: Denies any burning micturition, frequency, or urgency. MUSCULOSKELETAL/RHEUMATOLOGICAL: Denies any joint pain, swelling, or any muscle pain. ENDOCRINE: Denies any polyuria or polydipsia. Past Medical History Past Medical History: Cancer, Diabetes Mellitus Additional Past Medical History / Comment(s): Prostate cancer -recent. spots on lungs History of Any Multi-Drug Resistant Organisms: None Reported Past Surgical History: No Surgical Hx Reported Additional Past Surgical History / Comment(s): kidney stone removed, colonoscopy Past Anesthesia/Blood Transfusion Reactions: No Reported Reaction Additional Past Anesthesia/Blood Transfusion Reaction / Comm: no blood transfusion Past Psychological History: No Psychological Hx Reported Smoking Status: Never smoker - Past Family History Father Family Medical History: Cancer Additional Family Medical History / Comment(s): stomach Medications and Allergies Home Medications Medication Instructions Recorded Confirmed Type Aspirin EC [Ecotrin Low Dose] 81 mg PO DAILY 02/03/24 08/29/24 History Tamsulosin [Flomax] 0.4 mg PO HS 02/03/24 08/29/24 History Insulin Glargine,Hum.rec.anlog 10 units SQ HS 03/16/24 08/29/24 History [Lantus Solostar Pen] Calcium Carbonate [Calcium] 600 mg PO BID 08/29/24 08/29/24 History Insulin Aspart [NovoLOG Flexpen] See Protocol SQ TID-W/MEALS 08/29/24 08/29/24 History Relugolix [Orgovyx] 120 mg PO DAILY 08/29/24 08/29/24 History Allergies Allergy/AdvReac Type Severity Reaction Status Date / Time No Known Allergies Allergy Verified 08/29/24 09:12 Physical Exam Vitals: Vital Signs Temp Pulse Resp BP Pulse Ox 08/29/24 18:01 98.3 F 66 16 155/83 96 08/29/24 14:30 98.8 F 69 16 160/81 96 08/29/24 10:30 98.6 F 72 16 152/89 97 08/29/24 05:16 98.8 F 80 18 150/84 98 08/29/24 02:00 66 18 138/79 97 08/29/24 01:00 76 18 138/90 97 08/29/24 00:00 58 L 18 147/77 97 08/28/24 23:00 56 L 18 163/82 97 08/28/24 21:37 98.7 F 72 18 159/89 97 GENERAL: The patient is alert and oriented x3, not in any acute distress. Well developed, well nourished. -HEENT: Pupils are round and equally reacting to light. EOMI. No scleral icterus. No conjunctival pallor. Normocephalic, atraumatic. No pharyngeal erythema. No thyromegaly. Patient significantly jaundiced CARDIOVASCULAR: S1 and S2 present. No murmurs, rubs, or gallops. PULMONARY: Chest is clear to auscultation, no wheezing , no crackles. ABDOMEN: Soft, nontender, nondistended, normoactive bowel sounds. No palpable organomegaly. MUSCULOSKELETAL: No joint swelling or deformity. EXTREMITIES: No cyanosis, clubbing, or pedal edema. NEUROLOGICAL: Gross neurological examination did not reveal any focal deficits. SKIN: No rashes. no petechiae. Results CBC & Chem 7: 08/29/24 14:54 08/29/24 14:54 Labs: Abnormal Lab Results - Last 24 Hours (Table) 08/29/24 08/29/24 08/29/24 Range/Units 04:00 09:42 14:54 RBC 3.67 L (4.30-5.90) m/uL Hgb 11.3 L (13.0-17.5) gm/dL Hct 32.9 L (39.0-53.0) % RDW 20.0 H (11.5-15.5) % Sodium (137-145) mmol/L Glucose (74-99) mg/dL POC Glucose (mg/dL) 155 H (70-110) mg/dL Total Bilirubin (0.2-1.3) mg/dL AST (17-59) U/L ALT (4-49) U/L Alkaline Phosphatase (38-126) U/L Albumin (3.5-5.0) g/dL Urine Protein 1+ H (Negative) Urine Glucose (UA) 2+ H (Negative) Urine Bilirubin 4+ H (Negative) Urine WBC 6 H (0-5) /hpf Amorphous Sediment Few H (None) /hpf Hyaline Casts 14 H (0-2) /lpf Urine Mucus Moderate H (None) /hpf 08/29/24 Range/Units 14:54 RBC (4.30-5.90) m/uL Hgb (13.0-17.5) gm/dL Hct (39.0-53.0) % RDW (11.5-15.5) % Sodium 135 L (137-145) mmol/L Glucose 130 H (74-99) mg/dL POC Glucose (mg/dL) (70-110) mg/dL Total Bilirubin 20.8 H* (0.2-1.3) mg/dL AST 331 H (17-59) U/L ALT 422 H (4-49) U/L Alkaline Phosphatase 1144 H (38-126) U/L Albumin 3.4 L (3.5-5.0) g/dL Urine Protein (Negative) Urine Glucose (UA) (Negative) Urine Bilirubin (Negative) Urine WBC (0-5) /hpf Amorphous Sediment (None) /hpf Hyaline Casts (0-2) /lpf Urine Mucus (None) /hpf Assessment and Plan Assessment: prominent of the pancreatic uncinate process with biliary dilatation of the co mmon bile duct and distended gallbladder, findings suspicious for tumor of the pancreas. Patient with severe jaundice Prostate cancer already on chemotherapy with relugolix. Diabetes mellitus Plan: Continue with gentle hydration Patient was not looking in pain Patient was accepted by [facility] to be transferred once bed is available GI and DVT prophylaxis Prognosis is guarded
[2024-08-30] MEDS ORDERED: INSULIN DETEMIR (LEVEMIR) 100 UNIT/ML SYR SQ SCH (02:24)
[2024-08-30 06:32] LABS: Glucose,Whole Blood 169 mg/dL (70-110)
--- NOTE | 2024-08-30 07:04 | CT ---
EXAMINATION TYPE: CT brain cspine wo con DATE OF EXAM: 08/30/2024 COMPARISON: NONE HISTORY: Pt fell while going to the bathroom in ER. History of prostate cancer. CT DLP: 1386.2 mGycm. Automated Exposure Control for Dose Reduction was Utilized. TECHNIQUE: CT scan of the head and cervical spine are performed without contrast. FINDINGS: There is no acute intracranial hemorrhage or midline shift identified. Mild ventricular a nd sulcal prominence. The calvarium is intact. Age-indeterminate fracture of the medial wall left orb it. Completely opacified left maxillary sinus. Cervical spine is visualized in its entirety from C1 through upper thoracic levels and demonstrates s light grade 1 anterolisthesis of C3 on C4 and C6 on C7 without evidence of acute fracture or dislocat ion. Prevertebral soft tissue appears within normal limits. The C1-C2 articulation is within normal limits on the coronal images. Vertebral body heights are maintained. Moderate to severe disc space narrowing and moderate anterior spurring at C5-C6 level is present. Axial images show multilevel unco vertebral facet degenerative changes bilaterally causing multilevel bilateral neural foraminal narrow ing. Thyroid gland is normal in size. Lung apices show no pneumothorax. There are few scattered small noncalcified pulmonary nodules noted. These are described on recent whole body CT August 22. IMPRESSION: 1. There is no acute fracture or dislocation evident in the cervical spine. 2. No acute intracranial hemorrhage or midline shift is seen. [facility], , 08/30/2024 7:02 AM
[2024-08-30] MEDS: PANTOPRAZOLE 40 MG TABLET PO SCH (08:44)
[2024-08-30] MEDS: HEPARIN SODIUM,PORCINE 5,000 UNIT/ML 1 ML VIAL SQ SCH (08:44)
[2024-08-30] MEDS: ASPIRIN 81 MG PO SCH (08:45)
[2024-08-30] MEDS: Relugolix [Orgovyx] 120 MG Tablet PO SCH (08:54)
--- NOTE | 2024-08-30 11:13 | P.PN ---
Subjective This is a pleasant 69 years old male. Who has significant history of prostate cancer and he is getting chemotherapy with relugolix , also he has history of lung nodule underwent recent bronchoscopy with washing and biopsy which were negative for malignant cells. About few months ago Dr. Davila referred him to Dr. Lora who started seeing him for the last [address] of the abdomen as an outpatient showing decrease in the size of the lung nodularity but there is prominent of the pancreatic uncinate process with biliary di latation of the common bile duct and distended gallbladder, findings suspicious for tumor of the pancreas. Saw Dr. Lora office contacted the patient to come to emergency room Patient currently lying in bed looks comfortable not in distress. He looks sad. He answers questions appropriately and he has insight He denies chest pain or dyspnea. No specific GI symptom. While he is in the emergency room his vitals look stable and he is afebrile Labs reviewed also has unremarkable CBC, BMP, INR However bilirubin is elevated significantly at the 20.8 while AST 331 and ALT 422. Hemoglobin stable at 11.3. Urine analysis showing elevated bilirubin at 4+ Lactic acid is within the reference range of 2.0 No in the emergency room. However he had his CAT scan of the abdomen on 08/24 with results as above Patient while he is in ER, [facility] for transfer center was contacted and they accepted the patient however there is waiting time about 4 days. 08/30 Patient clinically is no change from yesterday No chest pain or dyspnea He looks relaxed and calm He tolerates diet well, has good bowel movement with no diarrhea, no abdominal pain or tenderness Vitals are stable and he is afebrile. Lab still pending still pending getting a bed at [facility] for transfer Objective - Vital Signs Vital signs: Vital Signs Temp 98.1 F 08/29/24 23:00 Pulse 69 08/30/24 09:08 Resp 18 08/30/24 09:08 BP 140/85 08/30/24 09:08 Pulse Ox 99 08/30/24 09:08 FiO2 - Exam GENERAL: The patient is alert and oriented x3, not in any acute distress. Well developed, well nourished. -HEENT: Pupils are round and equally reacting to light. EOMI. No scleral icterus. No conjunctival pallor. Normocephalic, atraumatic. No pharyngeal erythema. No thyromegaly. Jaundice CARDIOVASCULAR: S1 and S2 present. No murmurs, rubs, or gallops. PULMONARY: Chest is clear to auscultation, no wheezing , no crackles. ABDOMEN: Soft, nontender, nondistended, normoactive bowel sounds. No palpable organomegaly. MUSCULOSKELETAL: No joint swelling or deformity. EXTREMITIES: No cyanosis, clubbing, or pedal edema. NEUROLOGICAL: Gross neurological examination did not reveal any focal deficits. SKIN: No rashes. no petechiae. - Labs CBC & Chem 7: 08/29/24 14:54 08/29/24 14:54 Labs: Abnormal Lab Results - Last 24 Hours (Table) 08/29/24 08/29/24 08/30/24 Range/Units 14:54 14:54 06:30 RBC 3.67 L (4.30-5.90) m/uL Hgb 11.3 L (13.0-17.5) gm/dL Hct 32.9 L (39.0-53.0) % RDW 20.0 H (11.5-15.5) % Sodium 135 L (137-145) mmol/L Glucose 130 H (74-99) mg/dL POC Glucose (mg/dL) 169 H (70-110) mg/dL Total Bilirubin 20.8 H* (0.2-1.3) mg/dL AST 331 H (17-59) U/L ALT 422 H (4-49) U/L Alkaline Phosphatase 1144 H (38-126) U/L Albumin 3.4 L (3.5-5.0) g/dL Assessment and Plan Assessment: prominent of the pancreatic uncinate process with biliary dilatation of the common bile duct and distended gallbladder, findings suspicious for tumor of the pancreas. Patient with severe jaundice Prostate cancer already on chemotherapy with relugolix. Diabetes mellitus Plan: Continue with gentle hydration Patient was not looking in pain Patient was accepted by [facility] to be transferred once bed is available GI and DVT prophylaxis Prognosis is guarded
[2024-08-30 13:36] LABS: ALT 384 U/L (4-49); AST 304 U/L (17-59); African American GFR (CKD) >90 (>60 ml/min/1.73 sqM); Albumin 3.1 g/dL (3.5-5.0); Anion Gap 6 mmol/L; Bilirubin, Conjugated 11.2 mg/dL (0.0-0.3); Bilirubin,Unconjugated 2.3 mg/dL (0.0-1.1); Blood Urea Nitrogen 23 mg/dL (9-20); Calcium 8.3 mg/dL (8.4-10.2); Carbon Dioxide 23 mmol/L (22-30); Chloride 105 mmol/L (98-107); Glucose 147 mg/dL (74-99); Non-African American GFR(CKD) >90 (>60 ml/min/1.73 sqM); Potassium 3.7 mmol/L (3.5-5.1); Sodium 134 mmol/L (137-145); Total Protein 6.1 g/dL (6.3-8.2)
[2024-08-30 13:48] LABS: Alkaline Phosphatase 1106 U/L (38-126); Total Bilirubin 19.5 mg/dL (0.2-1.3)
[2024-08-30 14:23] VITALS: BP 135/88; PULSE 79; RESP 18; TEMP 97.6
== END 2024-08-30 15:49 | disposition other institution (70) ==
LOC: EC 17:35
DX: C25.9 Malignant neoplasm of pancreas, unspecified (principal)
CPT/HCPCS: 36415 ×3; 80053 ×2; 80048; 80076; 83605; 85025 ×2; 85610; 85730; 81001; 72125; 70450; 99285; J1644

== ENCOUNTER 2024-09-08 11:37 | Emergency (ER) | payer MEDICARE ==
[2024-09-08] MEDS: SODIUM CHLORIDE 0.9% 1,000 ML IV STA (13:32)
--- NOTE | 2024-09-08 13:41 | ED ---
General Adult HPI - General Chief complaint: Dizziness Stated complaint: jaundis Time Seen by Provider: 09/08/24 11:45 Source: EMS Mode of arrival: EMS - History of Present Illness Initial comments: 69-year-old male presents emergency department with past medical history of prostate cancer, recently diagnosed pancreatic cancer who presents emergency department with weakness. Patient was just discharged from [facility] 2 days ago after he had a biliary stent placed. Patient had significant jaundice. He reports that he was discharged home. First day the patient had an appetite however starting today the patient became nauseated and weak. Every time that he stood up today he felt like he was get a pass out. Reports that he is supposed to follow-up in September discuss chemo or radiation. Patient denies any fevers. Admits that his jaundice he feels is getting worse again. He denies any abdominal pain. No headache or visual changes. No chest pain or difficulty breathing. No other alleviating, precipitating or modifying factors - Related Data Home Medications Medication Instructions Recorded Confirmed Aspirin EC [Ecotrin Low Dose] 81 mg PO DAILY 02/03/24 09/08/24 Tamsulosin [Flomax] 0.4 mg PO HS 02/03/24 09/08/24 Insulin Glargine,Hum.rec.anlog 10 units SQ HS 03/16/24 09/08/24 [Lantus Solostar Pen] Calcium Carbonate [Calcium] 600 mg PO BID 08/29/24 09/08/24 Insulin Aspart [NovoLOG Flexpen] See Protocol SQ TID-W/MEALS 08/29/24 09/08/24 Relugolix [Orgovyx] 120 mg PO DAILY 08/29/24 09/08/24 Allergies Allergy/AdvReac Type Severity Reaction Status Date / Time No Known Allergies Allergy Verified 09/08/24 19:10 Review of Systems ROS Statement: Those systems with pertinent positive or pertinent negative responses have been documented in the HPI. ROS Other: All systems not noted in ROS Statement are negative. Past Medical History Past Medical History: Cancer, Diabetes Mellitus Additional Past Medical History / Comment(s): Prostate cancer -recent. spots on lungs Pancreatic cancer diagnosed 08/2024. History of Any Multi-Drug Resistant Organisms: None Reported Past Surgical History: No Surgical Hx Reported Additional Past Surgical History / Comment(s): kidney stone removed, colonoscopy, pancreatic stent Past Anesthesia/Blood Transfusion Reactions: No Reported Reaction Additional Past Anesthesia/Blood Transfusion Reaction / Comment(s): no blood transfusion Past Psychological History: No Psychological Hx Reported Smoking Status: Never smoker - Past Family History Father Family Medical History: Cancer Additional Family Medical History / Comment(s): stomach General Exam General appearance: alert, in no apparent distress Head exam: Present: atraumatic, normocephalic, normal inspection Eye exam: Present: scleral icterus ENT exam: Present: mucous membranes dry Respiratory exam: Present: normal lung sounds bilaterally. Absent: respiratory distress, wheezes, rales, rhonchi, stridor Cardiovascular Exam: Present: regular rate, normal rhythm, normal heart sounds. Absent: systolic murmur, diastolic murmur, rubs, gallop, clicks GI/Abdominal exam: Present: soft, normal bowel sounds. Absent: distended, tenderness, guarding, rebound, rigid Neurological exam: Present: alert, oriented X3, CN II-XII intact Psychiatric exam: Present: normal affect, normal mood Skin exam: Present: other (jaundice) Course Vital Signs 09/08/24 09/08/24 09/08/24 11:42 13:08 14:15 Temperature 97.5 F L Pulse Rate 94 96 Respiratory 18 18 Rate Blood Pressure 88/67 103/74 Blood Pressure 110/67 [Right Arm Sitting] Blood Pressure 83/63 [Right Arm Standing] Blood Pressure 119/84 [Right Arm Supine] O2 Sat by Pulse 99 96 Oximetry 09/08/24 09/08/24 09/08/24 14:55 17:36 18:30 Temperature 97.9 F Pulse Rate 90 98 94 Respiratory 18 20 16 Rate Blood Pressure 125/83 126/87 132/93 Blood Pressure [Right Arm Sitting] Blood Pressure [Right Arm Standing] Blood Pressure [Right Arm Supine] O2 Sat by Pulse 94 L 99 99 Oximetry 09/08/24 09/09/24 22:34 05:13 Temperature Pulse Rate 59 L 56 L Respiratory 16 16 Rate Blood Pressure 137/85 141/72 Blood Pressure [Right Arm Sitting] Blood Pressure [Right Arm Standing] Blood Pressure [Right Arm Supine] O2 Sat by Pulse 97 98 Oximetry Medical Decision Making - Medical Decision Making Was pt. sent in by a medical professional or institution (, PA, [employer], urgent care, hospital, or prison...) When possible be specific @ -No Did you speak to anyone other than the patient for history (EMS, parent, family, police, friend...)? What history was obtained from this source @ -Spoke with EMS for history Did you review nursing and triage notes (agree or disagree)? Why? @ -I reviewed and agree with nursing and triage notes Were old charts reviewed (outside hosp., previous admission, EMS record, old EKG, old radiological studies, urgent care reports/EKG's, prison records)? Report findings @ -I reviewed the chart from August 28 for patient was seen for jaundice Differential Diagnosis (chest pain, altered mental status, abdominal pain women, abdominal pain men, vaginal bleeding, weakness, fever, dyspnea, syncope, headache, dizziness, GI bleed, back pain, seizure, CVA, palpatations, mental health, musculoskeletal)? @ -Differential Weakness: Hypoglycemia, shock, sepsis, hyponatremia, anemia, infection, PR, ETOH, adverse medicine reaction, overdose, stroke, this is not meant to be an all-inclusive list. EKG interpreted by me (3pts min.). @ -Yes and demonstrates possible afib with rate of 96. QRS 86. QTc of 399. No acute ST segment elevations or depressions X-rays interpreted by me (1pt min.). @ -None done CT interpreted by me (1pt min.). @ -Yes which demonstrates gallbladder wall thickening U/S interpreted by me (1pt. min.). @ -Yes which is equivocal for cholecystitis. There is gallbladder sludge. What testing was considered but not performed or refused? (CT, X-rays, U/S, labs)? Why? @ -None What meds were considered but not given or refused? Why? @ -None Did you discuss the management of the patient with other professionals (valente deleon i.e. , PA, [employer], lab, RT, psych nurse, social work manager, project geophysicist, teacher, credit or loans officer, lining caser)? Give summary @ -Spoke with Dr. Russo -patient should be transferred back to [facility] as we do not have GI available Was smoking cessation discussed for >3mins.? @ -No Was critical care preformed (if so, how long)? @ -No Were there social determinants of health that impacted care today? How? (Homelessness, low income, unemployed, alcoholism, drug addiction, transportation, low edu. Level, literacy, decrease access to med. care, [facility], rehab)? @ -No Was there de-escalation of care discussed even if they declined (Discuss DNR or withdrawal of care, Hospice)? DNR status @ -No What co-morbidities impacted this encounter? (DM, HTN, Smoking, COPD, CAD, Cancer, CVA, ARF, Chemo, Hep., AIDS, mental health diagnosis, sleep apnea, morbid obesity)? @ -Pancreatic cancer, prostate cancer Was patient admitted / discharged? Hospital course, mention meds given and route, prescriptions, significant lab abnormalities, going to OR and other pertinent info. @ -Upon arrival patient seen and evaluated in bed 19. Thorough history and physical exam was performed. Orthostatics were obtained and are positive. IV was established and laboratory studies are conducted. Patient is given normal saline. Laboratory studies are conducted. CT was performed which demonstrates possible cholecystitis. At this time antibiotics are administered after blood cultures were obtained. I did obtain a gallbladder ultrasound which does demonstrate gallbladder sludge with gallbladder wall thickening. I did discuss this with the admitting team. We do not have GI available. Patient is status post stent at [facility] and they do feel that the patient should be transferred back to their facility. I did call and speak with Dr. Alfaro. He does accept the transfer. Patient is currently awaiting a bed in stable condition. Undiagnosed new problem with uncertain prognosis? @ -No Drug Therapy requiring intensive monitoring for toxicity (Heparin, Nitro, Insulin, Cardizem)? @ -No Were any procedures done? @ -No Diagnosis/symptom? @ -Generalized weakness, orthostatic hypotension, transaminitis, acute cholecystitis with cholelithiasis, possible choledocholithiasis, status post biliary stent secondary to hyperbilirubinemia, pancreatic mass Acute, or Chronic, or Acute on Chronic? @ -Acute Uncomplicated (without systemic symptoms) or Complicated (systemic symptoms)? @ -Complicated Side effects of treatment? @ -No Exacerbation, Progression, or Severe Exacerbation? @ -No Poses a threat to life or bodily function? How? (Chest pain, USA, PR, pneumonia, PE, COPD, DKA, ARF, appy, cholecystitis, CVA, Diverticulitis, Homicidal, Suicidal, threat to staff... and all critical care pts) @ -No - Lab Data Result diagrams: 09/08/24 13:30 09/08/24 13:30 Lab Results 09/08/24 09/08/24 09/08/24 Range/Units 13:30 13:30 13:30 WBC 7.3 (3.8-10.6) k/uL RBC 3.96 L (4.30-5.90) m/uL Hgb 11.6 L (13.0-17.5) gm/dL Hct 35.4 L (39.0-53.0) % MCV 89.3 (80.0-100.0) fL MCH 29.3 (25.0-35.0) pg MCHC 32.8 (31.0-37.0) g/dL RDW 21.3 H (11.5-15.5) % Plt Count 371 (150-450) k/uL MPV 9.0 Neutrophils % 78 % Lymphocytes % 12 % Monocytes % 7 % Eosinophils % 1 % Basophils % 0 % Neutrophils # 5.7 (1.3-7.7) k/uL Lymphocytes # 0.9 L (1.0-4.8) k/uL Monocytes # 0.5 (0-1.0) k/uL Eosinophils # 0.0 (0-0.7) k/uL Basophils # 0.0 (0-0.2) k/uL Anisocytosis Moderate Microcytosis Slight PT 13.4 H (10.0-12.5) sec INR 1.3 H (<1.2) APTT 23.4 (22.0-30.0) sec Sodium 136 L (137-145) mmol/L Potassium 3.8 (3.5-5.1) mmol/L Chloride 102 (98-107) mmol/L Carbon Dioxide 26 (22-30) mmol/L Anion Gap 8 mmol/L BUN 38 H (9-20) mg/dL Creatinine 0.84 (0.66-1.25) mg/dL Est GFR (CKD-EPI)AfAm >90 (>60 ml/min/1.73 sqM) Est GFR (CKD-EPI)NonAf 89 (>60 ml/min/1.73 sqM) Glucose 214 H (74-99) mg/dL Lactic Ac Sepsis Rflx Plasma Lactic Acid Juma (0.7-2.0) mmol/L Calcium 8.8 (8.4-10.2) mg/dL Magnesium 2.4 H (1.6-2.3) mg/dL Total Bilirubin 14.5 H (0.2-1.3) mg/dL Conjugated Bilirubin 6.5 H (0.0-0.3) mg/dL Unconjugated Bilirubin 1.7 H (0.0-1.1) mg/dL Delta Bilirubin 6.3 H (0.0-0.2) mg/dL AST 2435 H (17-59) U/L ALT 2551 H (4-49) U/L Alkaline Phosphatase 1959 H (38-126) U/L Ammonia (<30) umol/L Troponin I (0.000-0.034) ng/mL Total Protein 5.8 L (6.3-8.2) g/dL Albumin 2.9 L (3.5-5.0) g/dL 09/08/24 09/08/24 09/08/24 Range/Units 13:30 13:30 14:06 WBC (3.8-10.6) k/uL RBC (4.30-5.90) m/uL Hgb (13.0-17.5) gm/dL Hct (39.0-53.0) % MCV (80.0-100.0) fL MCH (25.0-35.0) pg MCHC (31.0-37.0) g/dL RDW (11.5-15.5) % Plt Count (150-450) k/uL MPV Neutrophils % % Lymphocytes % % Monocytes % % Eosinophils % % Basophils % % Neutrophils # (1.3-7.7) k/uL Lymphocytes # (1.0-4.8) k/uL Monocytes # (0-1.0) k/uL Eosinophils # (0-0.7) k/uL Basophils # (0-0.2) k/uL Anisocytosis Microcytosis PT (10.0-12.5) sec INR (<1.2) APTT (22.0-30.0) sec Sodium (137-145) mmol/L Potassium (3.5-5.1) mmol/L Chloride (98-107) mmol/L Carbon Dioxide (22-30) mmol/L Anion Gap mmol/L BUN (9-20) mg/dL Creatinine (0.66-1.25) mg/dL Est GFR (CKD-EPI)AfAm (>60 ml/min/1.73 sqM) Est GFR (CKD-EPI)NonAf (>60 ml/min/1.73 sqM) Glucose (74-99) mg/dL Lactic Ac Sepsis Rflx Y Plasma Lactic Acid Juma 2.3 H* (0.7-2.0) mmol/L Calcium (8.4-10.2) mg/dL Magnesium (1.6-2.3) mg/dL Total Bilirubin (0.2-1.3) mg/dL Conjugated Bilirubin (0.0-0.3) mg/dL Unconjugated Bilirubin (0.0-1.1) mg/dL Delta Bilirubin (0.0-0.2) mg/dL AST (17-59) U/L ALT (4-49) U/L Alkaline Phosphatase (38-126) U/L Ammonia 33 H (<30) umol/L Troponin I <0.012 (0.000-0.034) ng/mL Total Protein (6.3-8.2) g/dL Albumin (3.5-5.0) g/dL 09/08/24 Range/Units 16:36 WBC (3.8-10.6) k/uL RBC (4.30-5.90) m/uL Hgb (13.0-17.5) gm/dL Hct (39.0-53.0) % MCV (80.0-100.0) fL MCH (25.0-35.0) pg MCHC (31.0-37.0) g/dL RDW (11.5-15.5) % Plt Count (150-450) k/uL MPV Neutrophils % % Lymphocytes % % Monocytes % % Eosinophils % % Basophils % % Neutrophils # (1.3-7.7) k/uL Lymphocytes # (1.0-4.8) k/uL Monocytes # (0-1.0) k/uL Eosinophils # (0-0.7) k/uL Basophils # (0-0.2) k/uL Anisocytosis Microcytosis PT (10.0-12.5) sec INR (<1.2) APTT (22.0-30.0) sec Sodium (137-145) mmol/L Potassium (3.5-5.1) mmol/L Chloride (98-107) mmol/L Carbon Dioxide (22-30) mmol/L Anion Gap mmol/L BUN (9-20) mg/dL Creatinine (0.66-1.25) mg/dL Est GFR (CKD-EPI)AfAm (>60 ml/min/1.73 sqM) Est GFR (CKD-EPI)NonAf (>60 ml/min/1.73 sqM) Glucose (74-99) mg/dL Lactic Ac Sepsis Rflx Plasma Lactic Acid Juma 1.6 (0.7-2.0) mmol/L Calcium (8.4-10.2) mg/dL Magnesium (1.6-2.3) mg/dL Total Bilirubin (0.2-1.3) mg/dL Conjugated Bilirubin (0.0-0.3) mg/dL Unconjugated Bilirubin (0.0-1.1) mg/dL Delta Bilirubin (0.0-0.2) mg/dL AST (17-59) U/L ALT (4-49) U/L Alkaline Phosphatase (38-126) U/L Ammonia (<30) umol/L Troponin I (0.000-0.034) ng/mL Total Protein (6.3-8.2) g/dL Albumin (3.5-5.0) g/dL Disposition Clinical Impression: Pancreatic mass, Jaundice, Cholecystitis, Cholelithiasis, Transaminitis Disposition: OTHER INSTITUTION NOT DEFINED Condition: Serious Is patient prescribed a controlled substance at d/c from ED?: No Referrals: Mary Churchill III, MD [Primary Care Provider] - 1-2 days Time of Disposition: 21:17 - Out of Hospital Transfer - Req. Specs Out of Hospital Transfer - Requested Specifics: Other Emergency Center ([facility])
[2024-09-08 13:59] LABS: African American GFR (CKD) >90 (>60 ml/min/1.73 sqM); Albumin 2.9 g/dL (3.5-5.0); Anion Gap 8 mmol/L; Bilirubin, Conjugated 6.5 mg/dL (0.0-0.3); Bilirubin, Delta 6.3 mg/dL (0.0-0.2); Bilirubin,Unconjugated 1.7 mg/dL (0.0-1.1); Blood Urea Nitrogen 38 mg/dL (9-20); Calcium 8.8 mg/dL (8.4-10.2); Carbon Dioxide 26 mmol/L (22-30); Chloride 102 mmol/L (98-107); Glucose 214 mg/dL (74-99); Magnesium 2.4 mg/dL (1.6-2.3); Non-African American GFR(CKD) 89 (>60 ml/min/1.73 sqM); Potassium 3.8 mmol/L (3.5-5.1); Sodium 136 mmol/L (137-145); Total Bilirubin 14.5 mg/dL (0.2-1.3); Total Protein 5.8 g/dL (6.3-8.2)
[2024-09-08 14:01] LABS: Anisocytosis Moderate; Basophils % (A) 0 %; Eosinophils % (A) 1 %; HCT 35.4 % (39.0-53.0); HGB 11.6 gm/dL (13.0-17.5); Lymphocytes # (A) 0.9 k/uL (1.0-4.8); Lymphocytes % (A) 12 %; MCH 29.3 pg (25.0-35.0); MCHC 32.8 g/dL (31.0-37.0); MCV 89.3 fL (80.0-100.0); Microcytosis Slight; Monocytes # (A) 0.5 k/uL (0-1.0); Monocytes % (A) 7 %; Neutrophils # (A) 5.7 k/uL (1.3-7.7); Neutrophils % (A) 78 %; Platelet Count 371 k/uL (150-450); RBC 3.96 m/uL (4.30-5.90); RDW 21.3 % (11.5-15.5); WBC 7.3 k/uL (3.8-10.6)
[2024-09-08 14:06] LABS: Lactic Acid, Venous 2.3 mmol/L (0.7-2.0)
[2024-09-08 14:35] LABS: INR 1.3 (<1.2); Partial Thromboplastin Time 23.4 sec (22.0-30.0); Prothrombin Time 13.4 sec (10.0-12.5)
[2024-09-08 14:37] LABS: Alkaline Phosphatase 1959 U/L (38-126)
[2024-09-08 14:38] LABS: AST 2435 U/L (17-59)
[2024-09-08 14:39] LABS: ALT 2551 U/L (4-49)
--- NOTE | 2024-09-08 15:36 | CT ---
EXAMINATION TYPE: CT abdomen pelvis w con DATE OF EXAM: 09/08/2024 3:15 PM COMPARISON: Previous CT study dated 08/22/2024. CLINICAL INDICATION: Male, 69 years old with history of elevated liver enzymes; jaundice, prostate an d pancreatic ca TECHNIQUE: Axial CT abdomen pelvis w con;Sagittal and coronal reformats were created on a separate w orkstation. Contrast used:100 mL of Isovue 300 with IV Contrast, (none if empty) Oral contrast used: without Oral Contrast (none if empty) CT DLP: 874.4 mGycm, Automated exposure control for dose reduction was used. FINDINGS: LOWER CHEST: Unremarkable ABDOMEN LIVER: Unremarkable GALLBLADDER AND BILE DUCTS: Gallbladder wall thickening/edema without CT evidence of cholelithiasis. CBD stent in place with pneumobilia suggesting stent patency. PANCREAS: No definite pancreatic ductal dilatation. SPLEEN: Unremarkable. ADRENAL GLANDS: Unremarkable. KIDNEYS AND URETERS: No evidence of hydronephrosis or renal calculus. The ureters are unremarkable. PELVIS BLADDER: No evidence for wall thickening or mass given limitations of exam. REPRODUCTIVE: Last exam calcifications. ABDOMEN & PELVIS STOMACH AND BOWEL: Stomach and duodenum are unremarkable. Mildly impacted rectosigmoid colonic stool. No evidence of bowel obstruction. PERITONEUM/RETROPERITONEUM: No evidence of pneumoperitoneum or free fluid. VASCULATURE: No evidence of aortic aneurysm. MUSCULOSKELETAL: No acute osseous abnormalities. Grade 1 anterolisthesis of L4 on L5. Multilevel lumb osacral spinal degenerative changes with diffuse interosseous formation. LYMPH NODES: No gross evidence for lymphadenopathy. SOFT TISSUE/ABDOMINAL WALL: Unremarkable IMPRESSION: 1. Nonspecific abnormal gallbladder wall thickening/edema without CT evidence of acute cholelithiasi s. 2. Interval placement of CBD stent with presence of pneumobilia suggesting stent patency. 3. Impacted rectosigmoid colonic stool suggesting constipation. 4. Otherwise, no acute abnormality is in the abdomen/pelvis or significant interval changes from rec ent study 08/21/2024. [facility], , 09/08/2024 3:34 PM
--- NOTE | 2024-09-08 17:08 | US ---
EXAMINATION TYPE: US gallbladder DATE OF EXAM: 09/08/2024 COMPARISON: CT 2023 CLINICAL INDICATION: Male, 69 years old with history of gallbladder wall thickening; TECHNIQUE: Grayscale and color Doppler imaging of the right upper quadrant was performed. FINDINGS: EXAM MEASUREMENTS: Liver Length: 16.1 cm Gallbladder Wall: 0.4 cm CBD: 0.9 cm Right Kidney: 11.4 x 6.2 x 6.0 cm Pancreas: obscured by overlying midline bowel gas Liver: wnl Gallbladder: hydropic, sludge, wall thickening Evidence for sonographic Moreno's sign: no CBD: dilated, air in duct Right Kidney: wnl IMPRESSION: Cholelithiasis and biliary sludge in addition to gallbladder wall thickening/edema with negative sono graphic Moreno's sign. Findings are equivocal for acute cholecystitis. Consider nuclear medicine HIDA scan for further evaluation as clinically warranted. [facility], , 09/08/2024 5:06 PM
[2024-09-08] MEDS: PIPERACILLIN-TAZOBACTAM 3.375 GM in SODIUM CHLORIDE 0.9% 100 ML IVPB STA (18:22)
[2024-09-08] MEDS: SODIUM CHLORIDE 0.9% 1,000 ML IV SCH (18:23)
[2024-09-08] MEDS: CALCIUM CARBONATE 500 MG CHEWABLE PO SCH (22:33)
[2024-09-09] MEDS: PIPERACILLIN-TAZOBACTAM 3.375 GM in SODIUM CHLORIDE 0.9% 100 ML IVPB SCH (03:26)
[2024-09-09] MEDS: ASPIRIN 81 MG PO SCH (08:33)
[2024-09-09] MEDS: RELUGOLIX 120 MG PO SCH (08:38)
[2024-09-09 09:48] LABS: Anisocytosis Moderate; Basophils # (A) 0.1 k/uL (0-0.2); Basophils % (A) 1 %; Eosinophils # (A) 0.2 k/uL (0-0.7); Eosinophils % (A) 3 %; HCT 35.3 % (39.0-53.0); HGB 11.6 gm/dL (13.0-17.5); Lymphocytes # (A) 2.6 k/uL (1.0-4.8); Lymphocytes % (A) 31 %; MCH 29.5 pg (25.0-35.0); MCHC 32.8 g/dL (31.0-37.0); MCV 90.1 fL (80.0-100.0); Mean Platelet Volume 8.5; Microcytosis Slight; Monocytes # (A) 0.4 k/uL (0-1.0); Monocytes % (A) 5 %; Neutrophils % (A) 59 %; Platelet Count 343 k/uL (150-450); RBC 3.92 m/uL (4.30-5.90); RDW 21.8 % (11.5-15.5); WBC 8.4 k/uL (3.8-10.6)
[2024-09-09 09:58] LABS: African American GFR (CKD) >90 (>60 ml/min/1.73 sqM); Albumin 2.8 g/dL (3.5-5.0); Anion Gap 7 mmol/L; Blood Urea Nitrogen 33 mg/dL (9-20); Calcium 8.4 mg/dL (8.4-10.2); Carbon Dioxide 30 mmol/L (22-30); Chloride 103 mmol/L (98-107); Glucose 171 mg/dL (74-99); Lipase 40 U/L (23-300); Non-African American GFR(CKD) 86 (>60 ml/min/1.73 sqM); Potassium 3.6 mmol/L (3.5-5.1); Sodium 140 mmol/L (137-145); Total Bilirubin 12.5 mg/dL (0.2-1.3); Total Protein 5.5 g/dL (6.3-8.2)
[2024-09-09 10:23] LABS: ALT 2250 U/L (4-49); Alkaline Phosphatase 1951 U/L (38-126)
[2024-09-09 10:32] LABS: AST 1787 U/L (17-59)
[2024-09-09 11:25] VITALS: BP 145/60; PULSE 75; RESP 20; TEMP 97.9
== END 2024-09-09 11:25 | disposition other institution (70) ==
LOC: EC 11:37
DX: K86.9 Disease of pancreas, unspecified (principal); K80.10 Calculus of gallbladder with chronic cholecystitis without obstruction; R17 Unspecified jaundice; R74.01 Elevation of levels of liver transaminase levels; Z85.07 Personal history of malignant neoplasm of pancreas; Z85.46 Personal history of malignant neoplasm of prostate
CPT/HCPCS: 36415; 93005; 80053; 82140; 82248; 83605; 83735; 84484; 85025; 85610; 85730; 87040; 76705; 74177; 99285; 96365; 96366 ×4; 96361; J2543; Q9967; 83690

== ENCOUNTER 2024-10-16 11:08 | Day surgery (SDC) | payer MEDICARE ==
[~2024-10-16 11:08] MED LIST: HYDROmorphone 0.5 MG/0.5 ML SYRINGE IVP PRN; Pre Op ABX Message 1 EACH MISC MISCELLANE ONE
[2024-10-16] MEDS: IV FLUID CONTINUATION 1,000 ML IV ONE (12:04)
[2024-10-16] MEDS: LACTATED RINGERS 1,000 ML IV SCH (12:04)
[2024-10-16 12:08] LABS: Glucose,Whole Blood 134 mg/dL (70-110)
[2024-10-16] MEDS: ONDANSETRON 4 MG/2 ML VIAL IVP STA (12:19)
[2024-10-16] MEDS: DEXAMETHASONE SOD PHOSPHATE 4 MG/ML 1 ML VIAL IVP STA (12:20)
[2024-10-16] MEDS ORDERED: ceFAZolin 1 GM/50 ML BAG (PMX) ONE (12:32)
[2024-10-16] MEDS ORDERED: PROPOFOL 10 MG/ML 20 ML VIAL IV ONE (12:32)
[2024-10-16] MEDS ORDERED: LIDOCAINE 1% INJ 10MG/ML (20 ML MDV) ONE (12:32)
[2024-10-16] MEDS ORDERED: fentaNYL (PF) 50 MCG/ML 2 ML AMP ONE (12:32)
[2024-10-16] MEDS: SODIUM CHLORIDE 0.9% 100 ML with ceFAZolin 2,000 MG IV ONE (12:46)
[2024-10-16] MEDS: BUPIVACAINE (PF) 0.25% 10 ML VIAL SQ ONE ×2 (12:56)
[2024-10-16 13:35] VITALS: TEMP 96.8
--- NOTE | 2024-10-16 13:37 | FL ---
EXAMINATION TYPE: FL guided central line placement DATE OF EXAM: 10/16/2024 FLUOROSCOPY Medi-port insertion 16sec fluoro time .[address] Savage Total images 4 [facility], Workstation: [email or web address], 10/16/2024 1:34 PM
[2024-10-16 14:04] VITALS: RESP 16
[2024-10-16 14:09] LABS: Glucose,Whole Blood 134 mg/dL (70-110)
--- NOTE | 2024-10-16 14:10 | XR ---
EXAMINATION TYPE: XR chest 1V confirm line [facility] DATE OF EXAM: 10/16/2024 COMPARISON: 06/28/2024 CLINICAL INDICATION: Male, 69 years old with history of Mediport; TECHNIQUE: Single frontal view of the chest is obtained. FINDINGS: Heart borderline enlarged. Left anterior chest wall injection port with catheter tip at the mid to lo wer SVC. Diffuse interstitial densities. No consolidation or pleural effusion. IMPRESSION: 1. Left anterior chest wall injection port with catheter tip at the mid to lower SVC. 2. Borderline heart size and interstitial densities. Correlate for possible mild CHF versus bronchiti s or atypical pneumonias. [facility], Workstation: [id number], 10/16/2024 2:08 PM
[2024-10-16 14:18] VITALS: BP 148/80; PULSE 56
--- NOTE | 2024-10-16 15:02 | P.OP ---
Date of Procedure: 10/16/24 Preoperative Diagnosis: Prostate cancer Pancreatic cancer Postoperative Diagnosis: Prostate cancer Pancreatic cancer Procedure(s) Performed: Mediport placement with fluoroscopic guidance Anesthesia: MARCELL Surgeon: Al Savage Pathology: none sent Condition: stable Disposition: same day Indications for Procedure: 69-year-old male presents with recent diagnosis of prostate and pancreatic cancer. After consultation with medical oncology decision has been made for chemotherapy induction. Plan is for Mediport placement. Risks, benefits and alternatives were provided to the patient. Plan is for left-sided placement as he has had recent pneumothorax on the right side after lung biopsy. Operative Findings: Appropriate flush and withdrawal from Mediport site Description of Procedure: Patient was brought to the operating suite and placed in supine position on the operating table. Sedation was provided by anesthesia and the patient underwent endotracheal intubation. Patient was then prepped and draped in regular sterile fashion. Local anesthetic was administered and the left subclavian vein was entered on first attempt. Guidewire was then placed and location was confirmed under fluoroscopic guidance. At this point local anesthetic was administered to create the pocket for the port. Incision was made and dissection was carried to the prepectoralis fascia. Dissection was carried to free up space for the port. At this point a small incision was made at the guidewire insertion site and a tunnel was created between this guidewire site and the pocket and catheter was placed. Dilator sheath was then placed over the guidewire under fluoroscopic guidance and catheter was then placed. Catheter was noted to be in appropriate position and was connected to the port and port was placed in the pocket. Appropriate flush and withdrawal was noted from the port site. The port was then secured to the prepectoralis fascia in 2 separate locations. Fluoroscopic guidance confirmed location with no kinks in the catheter. Heparin lock was placed. The wound was then closed in layers with 3-0 Vicryl and 4-0 Vicryl subcuticular suture. Sterile dressing was applied. The patient was then taken to postanesthesia care unit in stable condition with pending chest x-ray.
== END 2024-10-16 14:38 | disposition home or self-care (01) ==
LOC: OR 11:08
PROVIDERS: ATTEND Surgery
DX: C25.9 Malignant neoplasm of pancreas, unspecified (principal); C61 Malignant neoplasm of prostate; G47.33 Obstructive sleep apnea (adult) (pediatric); E11.9 Type 2 diabetes mellitus without complications; Z90.49 Acquired absence of other specified parts of digestive tract; Z79.4 Long term (current) use of insulin; Z79.899 Other long term (current) drug therapy
CPT/HCPCS: 36561; 77001; J1100; J2405; J0690; J1642; J0665